=== PATIENT | female | born 1980 | race Two or more races ===

== ENCOUNTER → 2020-01-09 15:05 | Outpatient (CLI) | payer BC, SELFPAY ==
--- NOTE | ~2020-01-09 | XR_ITS ---
XR lumbar spine 2-3V DATE: 01/09/2020 15:25 INDICATION: Left low back pain radiating down posterior left leg to knee. No injury. TECHNIQUE: AP, lateral, coned lateral lumbosacral views COMPARISON: None FINDINGS: No fracture or dislocation or bone destruction. Lumbar and included lower thoracic pedicles are intact. Lumbar and lower sacral interspaces are well preserved. The sacral iliac joints appear n ormal. IMPRESSION: No significant abnormality Reviewed, dictated and finalized at location A. IMPRESSION: No significant abnormality
== END ==
PROVIDERS: PCP Nurse Practitioner; Visit Provider Nurse Practitioner
DX: M54.9 Dorsalgia, unspecified (principal)
CPT/HCPCS: 72100

== ENCOUNTER 2020-01-10 11:31 | Emergency (ER) | payer BC, SELFPAY ==
--- NOTE | 2020-01-10 11:49 | ED.BACK ---
HPI - Back Pain/Injury General Chief Complaint: Extremity Problem,Nontraumatic Stated Complaint: nerve pain L leg and numbness Time Seen by Provider: 01/10/20 11:50 Source: patient Mode of arrival: ambulatory Limitations: no limitations History of Present Illness HPI Narrative: Previously well 39-year-old woman comes in today complaining of 3 days of progressive numbness in her left buttock and leg. She states that she had sudden onset of pain while driving 3 days ago. Since then the pain has improved but she is having progression of the numbness. She complains of weakness in her left leg. She now states that her buttock is numb, the medial aspect of her groin, leg and lower abdomen are now numb. She denies prior similar symptoms and has had no fever, night sweats, dysuria, recent cough or cold symptoms, abdominal pain or trauma. The day of onset she was prescribed a Medrol Dosepak and yesterday she was given a shot of triamcinolone for her symptoms. She has been taking NSAIDs as well. MD elicited complaint: back pain Onset (ago): day(s) (3) Timing: constant Severity: moderate Quality: sharp and aching Location: lumbar spine Radiation: buttocks and left upper leg Exacerbating factors: movement Relieving factors: none Associated symptoms: weakness, numbness and loss of sensation in lower extremities Treatments prior to arrival: NSAIDS Related Data Home Medications Medication Instructions Recorded Confirmed desvenlafaxine succinate 25 mg 25 mg PO DAILY 01/09/20 01/10/20 tablet,extended release 24 hr dextroamphetamine-amphetamine ER 15 mg PO DAILY 01/09/20 01/10/20 15 mg 24hr capsule,extend release doxylamine succinate 25 mg tablet 25 mg PO ONCE 01/09/20 01/10/20 methylprednisolone 4 mg tablet 4 mg PO DAILY 01/09/20 01/10/20 Allergies Allergy/AdvReac Type Severity Reaction Status Date / Time iodine Allergy Unknown Unknown Verified 01/09/20 14:25 Sulfa (Sulfonamide Allergy Unknown Rash Verified 01/09/20 14:25 Antibiotics) Review of Systems Constitutional: Constitutional: Denies chills and Denies fever(s) Eyes: Eyes: Denies change in vision and Denies photophobia ENT: Denies dysphagia, Denies nasal congestion and Denies sore throat Cardiovascular: Cardiovascular: Denies chest pain and Denies radiating jaw, neck or arm pain Respiratory: Respiratory: Denies chest congestion, Denies cough and Denies dyspnea Gastrointestinal: Gastrointestinal: Denies abdominal pain, Denies nausea and Denies vomiting Genitourinary: Genitourinary: Denies hematuria, Denies nocturia, Denies dysuria and Denies urinary incontinence Musculoskeletal: Musculoskeletal: Reports back pain, Denies arthralgias and Denies joint swelling Integumentary/Breasts: Skin/Breast: Denies pruritus, Denies erythema and Denies rash Neurologic: Denies vertigo, Denies dizziness and Denies syncope Endocrine: Endocrine: Denies polydipsia and Denies polyuria Hematologic/Lymphatic: Hematologic/Lymphatic: Denies easy bleeding and Denies easy bruising Allergic/Immunologic: Allergic/Immunologic: Denies lip swelling and Denies tongue swelling PMFSH Past Medical History Medical History ADHD Anxiety Migraines Surgical History Surgical History History of appendectomy History of partial hysterectomy Hx of tonsillectomy Family History Family History Mother Bipolar affect, depressed Father COPD (chronic obstructive pulmonary disease) Diabetes mellitus CHF (congestive heart failure) Liver disease Depression Grandparent Diabetes mellitus COPD (chronic obstructive pulmonary disease) Malignant neoplasm of prostate Sibling Hypertension High cholesterol Social History Social History Smoking status: Never smoker [place]
[2020-01-10 11:50] VITALS: BP 145/93; PULSE 96; RESP 16; TEMP 36.8; O2SAT 99
--- NOTE | 2020-01-10 12:49 | PC.NURSE ---
CALLS PLACED TO [facility] FOR OUTPATIENT MRI TODAY
--- NOTE | 2020-01-10 13:39 | PC.NURSE ---
CONTINUE TO AWAIT [facility] FOR MRI INSURANCE APPROVAL
[2020-01-10 14:22] VITALS: RESP 16
== END 2020-01-10 14:25 | disposition home or self-care (01) ==
PROVIDERS: Emergency Provider Emergency Medicine; PCP Nurse Practitioner
DX: M54.17 Radiculopathy, lumbosacral region (principal)
CPT/HCPCS: 99283

== ENCOUNTER 2020-01-10 15:07 | Outpatient (CLI) | payer BC, SELFPAY ==
--- NOTE | ~2020-01-10 | MR_ITS ---
EXAMINATION: MR lumbar spine wo/w con EXAM DATE: 01/10/2020 17:44 INDICATION: Anesthesia of skin. Dorsalgia. Numbness. Cramping and pain down left leg. Numbness beginn ing and pelvis. Started on Thursday, progressively worsening. TECHNIQUE: Multi-sequential, multiplanar MR images of the lumbar spine were obtained without contrast . Sagittal T1, T2, T2 fat saturation images. Axial T2 weighted images. Axial T1 weighted sequence. Patient was then injected with 15 mL Multihance intravenous contrast and reimaged. Postcontrast axi al and sagittal T1-weighted fat saturation sequences were obtained. There are no prior studies for co mparison. FINDINGS: There is 3 mm retrolisthesis L5 on S1 with mild loss of disc height, disc desiccation, karel lar fissure and extrusion. The vertebral body and disc heights are otherwise well maintained. The dayanara tebral bodies are otherwise aligned. The conus medullaris terminates at the L1/2 level and has normal signal intensity and morphology. The cauda equina are normal, no evidence of arachnoiditis. There a re no suspicious marrow signal abnormalities. Paraspinal soft tissue is unremarkable. Level by level evaluation: T12-L1: Disc does not extend beyond the endplate margin. Facet arthropathy: None. Neural foraminal stenosis: No stenosis. Central canal stenosis: No stenosis. L1-L2: Disc does not extend beyond the endplate margin. Facet arthropathy: None. Neural foraminal stenosis: No stenosis. Central canal stenosis: No stenosis. L2-L3: Disc does not extend beyond the endplate margin. Facet arthropathy: Mild. Neural foraminal stenosis: No stenosis. Central canal stenosis: No stenosis. L3-L4: Disc does not extend beyond the endplate margin. Facet arthropathy: Mild. Neural foraminal stenosis: No stenosis. Central canal stenosis: No stenosis. L4-L5: There is a minimal diffuse disc bulge. Facet arthropathy: Mild. Neural foraminal stenosis: No stenosis. Central canal stenosis: No stenosis. L5-S1: There is a mild diffuse disc bulge, central annular fissure with small to moderate-sized centr al protrusion, and also an inferiorly migrated extruded fragment measuring about 4 x 12 mm in greates t axial dimensions, in left central position posterior to S1. This is likely compressing the left S1 and possibly S2 nerve root(s) in the lateral recess. Mild enhancement in the region, probably mild e casandra. Facet arthropathy: Mild to moderate. Neural foraminal stenosis: Mild to moderate left, mild right. Central canal stenosis: Mild to moderate. IMPRESSION: L5-S1 disc protrusion, and left central extrusion causing significant mass effect on randal ersing left S1, possibly S2 nerve roots in the lateral. Most likely causing patient's symptoms. Reviewed, dictated and finalized at location G. IMPRESSION: L5-S1 disc protrusion, and left central extrusion causing significa nt mass effect on traversing left S1, possibly S2 nerve roots in the lateral. M ost likely causing patient's symptoms.
[2020-01-10 16:56] LABS: Estimated Glomerular Filt Rate > 60
== END 2020-01-10 15:08 | disposition home or self-care (01) ==
PROVIDERS: PCP Nurse Practitioner; Visit Provider Family Medicine
DX: R20.0 Anesthesia of skin (principal); R53.1 Weakness; M51.27 Other intervertebral disc displacement, lumbosacral region
CPT/HCPCS: 36415; 72158; A9577

== ENCOUNTER 2021-02-13 11:56 | Outpatient (CLI) | payer BC, SELFPAY ==
[2021-02-13 19:00] LABS: Add Urine Microscopic? NO; Appearance Urine Clear (Clear); Bilirubin Urine Negative (Negative); Blood Urine Negative (Negative); Color Urine Straw (Yellow); Glucose Urine UA Negative (Negative); Ketones Urine Negative (Negative); Leukocyte Esterase Ur Negative LEU/UL (NEGATIVE); Nitrate Urine Negative (Negative); Protein Urine Negative (Negative); Urobilinogen Urine Negative mg/dL (<2.0)
[2021-02-13 19:04] LABS: Basophils Absolute Auto 0.1 K/mm3 (0.0-0.1); Basophils Percent Auto 0.7 % (0.2-1.2); Eosinophils Absolute Auto 0.2 K/mm3 (0-0.3); Eosinophils Percent Auto 2.4 % (0-4.4); Hemoglobin 13.6 g/dL (12.0-15.0); Immature Granulocyte Absolute 0.03 K/mm3 (0.00-0.031); Immature Granulocyte Percent A 0.4 % (0-0.5); Lymphocytes Absolute Auto 2.22 K/mm3 (0.9-3.2); Lymphocytes Percent Auto 33.2 % (18.3-44.2); Mean Corpuscular HGB Conc 31.6 g/dl (32-36); Mean Corpuscular Hemoglobin 29.4 pg (26-34); Mean Corpuscular Volume 92.9 fl (80-100); Mean Platelet Volume 10.3 fl (7.4-10.4); Monocytes Absolute Auto 0.5 K/mm3 (0.1-0.6); Monocytes Percent Auto 7.6 % (2.6-8.5); Neutrophils Absolute Auto 3.7 K/mm3 (1.3-6.7); Neutrophils Percent Auto 55.7 % (45.5-73.1); Platelet Count Result 321 k/mm3 (150-375); Red Blood Count 4.63 M/mm3 (4.2-5.4); Red Cell Distribution Width 13.4 % (11.5-14.5); White Blood Count 6.7 K/mm3 (4.5-10.0)
[2021-02-13 19:05] LABS: Alanine Aminotransferase 28 U/L (4-35); Albumin Level 4.5 g/dL (3.5-5.1); Alkaline Phosphatase 97 U/L (38-126); Anion Gap 10 mmol/L (8-16); Aspartate Amino Transferase 36 U/L (14-36); Bilirubin,Total 0.6 mg/dL (0.2-1.3); Blood Urea Nitrogen 12 mg/dL (7-17); Calcium 9.5 mg/dL (8.4-10.2); Carbon Dioxide 26 mmol/L (22-30); Chloride 101 mmol/L (98-107); Cholesterol 215 mg/dL (0-200); Estimated Glomerular Filt Rate > 60; Glucose 87 mg/dL (65-110); HDL Direct 75 mg/dL; Potassium 4.2 mmol/L (3.4-5.0); Sodium 137 mmol/L (137-145); Triglycerides 101 mg/dL (<150)
[2021-02-13 19:16] LABS: LDL Cholesterol Direct 109 mg/dL
[2021-02-13 19:36] LABS: Vitamin D 25 Hydroxy 34.6 ng/mL
[2021-02-13 19:49] LABS: Thyroid Stimulating Hormone Reflex 0.656 uIU/mL (0.465-4.68)
[2021-02-13 20:07] LABS: Hemoglobin A1C 5.3 % (<5.7)
[2021-02-16 05:37] LABS: FSH 3.6 mIU/mL (***); LH 2.3 mIU/mL (***)
[2021-02-19 16:52] LABS: Estrogen 256.9 pg/mL
== END 2021-02-13 11:57 | disposition home or self-care (01) ==
LOC: ANHBWCLAB 11:56
PROVIDERS: PCP Family Medicine; Visit Provider Family Medicine
DX: E11.9 Type 2 diabetes mellitus without complications (principal); N39.0 Urinary tract infection, site not specified; E65 Localized adiposity; R63.5 Abnormal weight gain; M51.17 Intervertebral disc disorders with radiculopathy, lumbosacral region; R21 Rash and other nonspecific skin eruption; F41.9 Anxiety disorder, unspecified; F90.9 Attention-deficit hyperactivity disorder, unspecified type; R53.83 Other fatigue; E55.9 Vitamin D deficiency, unspecified
CPT/HCPCS: 36415; 80053; 80061; 81003; 82306; 82672; 83001; 83002; 83036; 84443; 85025; 86038

== ENCOUNTER 2021-03-20 16:12 | Outpatient (CLI) | payer BC, SELFPAY ==
[2021-03-20 19:11] LABS: Add Urine Microscopic? YES; Appearance Urine Clear (Clear); Bacteria Urine Trace /hpf; Bilirubin Urine Negative (Negative); Blood Urine 1+ (Negative); Calcium Oxalate Crystals Urine Present /hpf; Color Urine Yellow (Yellow); Glucose Urine UA Negative (Negative); Ketones Urine Negative (Negative); Leukocyte Esterase Ur 1+ LEU/UL (NEGATIVE); Mucus Urine Heavy /lpf; Nitrate Urine Negative (Negative); Protein Urine 1+ mg/dL (Negative); Specific Grav Ur 1.032 (1.001-1.035); Squamous Epithelial Cell Urine Many /hpf (Few); Urobilinogen Urine Negative mg/dL (<2.0)
== END 2021-03-20 16:13 | disposition home or self-care (01) ==
PROVIDERS: PCP Family Medicine; Visit Provider Family Medicine
DX: N39.0 Urinary tract infection, site not specified (principal)
CPT/HCPCS: 81001; 87077; 87086; 87088; 87186

== ENCOUNTER 2021-06-26 07:35 | Emergency (ER) | payer BC, OTHER, SELFPAY ==
--- NOTE | ~2021-06-26 | XR_ITS ---
EXAMINATION: XR chest 1V portable INDICATION: Cough and shortness of breath TECHNIQUE: Portable AP chest at 0851 hours COMPARISON: None available FINDINGS: There are minimal airspace opacities of the lung bases. No pleural effusion or pneumothorax is identified. The cardiomediastinal silhouette is normal. IMPRESSION: 1. Minimal bibasilar airspace opacity, consistent with atelectasis versus pneumonia. Reviewed, dictated and finalized at location A. ETICS DEMONSTRATOR IMPRESSION: 1. Minimal bibasilar airspace opacity, consistent with atelectasis versus pneum onia.
[2021-06-26 08:17] VITALS: BP 178/92; PULSE 100; RESP 20; TEMP 37; O2SAT 100
--- NOTE | 2021-06-26 09:12 | ED.URI ---
HPI - URI/Sore Throat General Chief Complaint: Upper Respiratory Infection <Ana Watts PA-C - Last Filed: 06/26/21 10:46> Stated Complaint: not feeling good <APRYL Davis Last Filed: 06/26/21 10:46> Time Seen by Provider: 06/26/21 08:59 <APRYL Davis Last Filed: 06/26/21 10:46> Source: patient <APRYL Davis Last Filed: 06/26/21 10:46> Mode of arrival: ambulatory <APRYL Davis Last Filed: 06/26/21 10:46> Limitations: no limitations <APRYL Davis Last Filed: 06/26/21 10:46> History of Present Illness HPI Narrative: This is a 40-year-old female that presents to the emergency department for cold symptoms x4 days. Reports cough, congestion, and headache. Reports she has a hard time catching her breath when she coughs. Denies fever or chest pain. <APRYL Davis Last Filed: 06/26/21 10:46> Related Data Home Medications: Home Medications Medication Instructions Recorded Confirmed dextroamphetamine-amphetamine ER 15 mg PO DAILY 01/09/20 06/25/21 15 mg 24hr capsule,extend release doxylamine succinate 25 mg tablet 25 mg PO ONCE 01/09/20 06/25/21 desvenlafaxine succinate 25 mg 75 mg PO DAILY tablet 02/13/21 06/25/21 tablet,extended release 24 hr gabapentin 300 mg capsule 300 mg PO TID 02/13/21 06/25/21 cyclobenzaprine 5 mg tablet 5 mg PO TID PRN 03/27/21 06/25/21 <APRYL Davis Last Filed: 06/26/21 10:46> Allergies/Adverse Reactions: Allergies Allergy/AdvReac Type Severity Reaction Status Date / Time iodine Allergy Unknown Unknown Verified 06/26/21 08:21 shellfish derived Allergy Unknown unknown Verified 06/26/21 08:21 Sulfa (Sulfonamide Allergy Unknown Rash Verified 06/26/21 08:21 Antibiotics) <Ana Watts PA-C - Last Filed: 06/26/21 10:46> Review of Systems Review of Systems: CONSTITUTIONAL: Denies fever ENT: Reports congestion. Denies sore throat CARDIOVASCULAR: Denies chest pain, or edema. RESPIRATORY: Reports cough <APRYL Davis Last Filed: 06/26/21 10:46> All systems reviewed & are unremarkable except as noted in HPI and below <Ana Watts PA-C - Last Filed: 06/26/21 10:46> PMFSH Past Medical History Medical History: Medical History ADHD Anxiety Migraines <APRYL Davis Last Filed: 06/26/21 10:46> Surgical History Surgical History: Surgical History History of appendectomy History of back surgery History of partial hysterectomy Hx of tonsillectomy <Ana Watts PA-C - Last Filed: 06/26/21 10:46> Family History Family History: Family History Mother Bipolar affect, depressed Father COPD (chronic obstructive pulmonary disease) Diabetes mellitus CHF (congestive heart failure) Liver disease Depression Grandparent Diabetes mellitus COPD (chronic obstructive pulmonary disease) Malignant neoplasm of prostate Sibling Hypertension High cholesterol Other Breast cancer Other Lymphoma <APRYL Davis Last Filed: 06/26/21 10:46> Social History Social History: Social History Smoking status: Never smoker Alcohol intake: current Drinks per week: 3 Alcohol use details: wine <APRYL Davis Last Filed: 06/26/21 10:46> Exam Narrative: GENERAL: Well-appearing, well-nourished, and in no acute distress. HEAD: Normocephalic, atraumatic. EYES: EOMI. ENT: Nares clear, no rhinorrhea or epistaxis. Mucous membranes moist. Oropharynx without tonsillar hypertrophy exudate or other lesions. Bilateral TMs pearly hawkins non-bulging NECK: Supple. No adenopathy or masses. CHEST: Rales in the lung bases. No respiratory distress. No wheezes or rhonchi HEART: Re
[2021-06-26] MEDS: ALBUTEROL SULFATE (*SP) AEROSOL 1 PUFF 2 PUFF INHALATION (09:31)
[2021-06-26] MEDS: ONDANSETRON HCL ODT 4 MG TABLET PO (09:47)
[2021-06-26] MEDS: KETOROLAC (*BKC) 60 MG/2 ML VIAL IM (09:47)
[2021-06-26] MEDS: ALBUTEROL SULFATE (*SP) INHALER 1 PUFF (11:31)
[2021-06-26 12:30] VITALS: BP 106/74; PULSE 90; RESP 18; O2SAT 99
[2021-06-26 20:26] LABS: SARS-CoV-2 RNA PCR Negative
== END 2021-06-26 12:26 | disposition home or self-care (01) ==
PROVIDERS: Physician Assistant; Emergency Provider Emergency Medicine; PCP Family Medicine
DX: J18.9 Pneumonia, unspecified organism (principal); Z20.822 Contact with and (suspected) exposure to COVID-19
CPT/HCPCS: 71045; 87804; 96372; 99283; A9270; C9803; J1885; U0003; U0005

== ENCOUNTER 2021-07-11 11:18 | Outpatient (CLI) | payer BC, OTHER, SELFPAY ==
--- NOTE | ~2021-07-11 | XR_ITS ---
XR hip LT min 3V w AP pelvis 07/11/2021 11:33 INDICATION: Left hip pain PROCEDURE: 3 views of the left hip including AP pelvis COMPARISON: No prior studies for comparison. FINDINGS: Fracture, dislocation or subluxation is not identified. The soft tissues appear within norm al limits. No foreign bodies are identified. IMPRESSION: 1: NO ACUTE BONE OR JOINT ABNORMALITY IDENTIFIED. Reviewed, dictated and finalized at location A. HER TENDER
== END 2021-07-11 11:19 | disposition home or self-care (01) ==
LOC: ANHBWCIMG 11:20
PROVIDERS: PCP Family Medicine; Visit Provider Family Medicine
DX: M25.552 Pain in left hip (principal)
CPT/HCPCS: 73502

== ENCOUNTER 2021-07-21 12:56 | Outpatient (CLI) | payer BC, OTHER, SELFPAY ==
--- NOTE | ~2021-07-21 | MR_ITS ---
EXAMINATION: MR hip LT wo con DATE: 07/21/2021 14:37 INDICATION: Left hip pain. TECHNIQUE: Magnetic resonance imaging (MRI) of the left hip was performed without intravenous contras t. Sequences included axial and coronal PD-weighted FS FSE and axial T1-weighted FSE of the pelvis. S equences of the hip included 2D FIESTA, T1-weighted fast GRE, and axial, coronal, and sagittal PD-andrea ghted FS FSE. COMPARISON: Pelvis and left hip radiographs 07/11/2021 FINDINGS: Bones/cartilage: Bone alignment is normal. No fracture. The femoral head/neck junctions are normal in morphology. Ther e are tiny osteophytes of the hip joints. Left hip joint demonstrates partial thickness cartilage los s posteriorly. Labrum: There is a tear of the left acetabular labrum. Fluid: There is no hip joint effusion. There is mild bilateral trochanteric bursitis. Soft tissues: The gluteus minimus and gluteus medius tendons are normal. The hamstring origins are normal. The ilio psoas tendons are normal. IMPRESSION: 1. Mild osteoarthritis of the hips. 2. Tear of left acetabular labrum. 3. Mild bilateral trochanteric bursitis. Reviewed, dictated and finalized at location A. ORATE HUMAN RESOURCES MANAGER
== END 2021-07-21 12:57 | disposition home or self-care (01) ==
PROVIDERS: PCP Family Medicine; Visit Provider Nurse Practitioner Family
DX: M16.12 Unilateral primary osteoarthritis, left hip (principal); S73.192A Other sprain of left hip, initial encounter; M70.62 Trochanteric bursitis, left hip
CPT/HCPCS: 73721

== ENCOUNTER 2021-07-21 13:05 | Outpatient (CLI) | payer BC, OTHER, SELFPAY ==
--- NOTE | ~2021-07-21 | MR_ITS ---
EXAMINATION: MR lumbar spine wo con DATE: 07/21/2021 14:37 INDICATION: Low back pain, unspecified. TECHNIQUE: Magnetic resonance imaging (MRI) of the lumbar spine was performed without intravenous con trast. Sequences included sagittal T2-weighted FSE, sagittal T2-weighted FS FSE, sagittal T1-weighted FSE, and axial T2-weighted FSE. COMPARISON: Lumbar spine MRI 01/10/2020 FINDINGS: There is 3 mm retrolisthesis of L5 on S1. Vertebral body heights are normal. There is moder ately decreased disc height at L5-S1. The distal spinal cord signal intensity is normal. The conus me dullaris is at L1. The following disc levels are specifically discussed: L1-L2: The disc does not extend beyond the endplate margin. There is mild bilateral facet joint osteo arthritis. There is no neural foraminal stenosis. There is no central canal stenosis. L2-L3: The disc does not extend beyond the endplate margin. There is mild bilateral facet joint osteo arthritis. There is no neural foraminal stenosis. There is no central canal stenosis. L3-L4: The disc does not extend beyond the endplate margin. There is mild bilateral facet joint osteo arthritis. There is no neural foraminal stenosis. There is no central canal stenosis. L4-L5: The disc does not extend beyond the endplate margin. There is no facet joint osteoarthritis. T here is no neural foraminal stenosis. There is no central canal stenosis. L5-S1: The disc is bulging and has an annular fissure. There are changes of microdiscectomy. There is mild right and severe left facet joint osteoarthritis. There is mild right and moderate left neural foraminal stenosis. There is mild central canal stenosis. IMPRESSION: 1. Moderate spondylosis at L5-S1 with interval surgical change. Reviewed, dictated and finalized at location A. L CASTER
== END 2021-07-21 13:06 | disposition home or self-care (01) ==
PROVIDERS: PCP Family Medicine; Visit Provider Family Medicine
DX: M47.27 Other spondylosis with radiculopathy, lumbosacral region (principal); M48.07 Spinal stenosis, lumbosacral region
CPT/HCPCS: 72148

== ENCOUNTER 2021-10-29 08:26 | Emergency (ER) | payer BC, OTHER, SELFPAY ==
[2021-10-29 08:33] VITALS: BP 118/70; PULSE 84; RESP 16; TEMP 36.8; O2SAT 100
--- NOTE | 2021-10-29 08:35 | ED.EAR ---
HPI - Ear Problem General Chief complaint: Ear Stated complaint: ear pain Time Seen by Provider: 10/29/21 08:35 Source: patient and RN notes reviewed History of Present Illness HPI Narrative: Patient is a 40-year-old female who presents the urgent care with complaints of bilateral ear pressure/pain. Patient states that she does have chronic allergies and assumed it was just a flare . Patient states that the pressure was worse yesterday and she did take a 24-hour Claritin. Denies of any fevers or other upper respiratory complaints. No acute distress noted. Patient aware of the plan of care. Some parts of this dictation were generated by voice recognition software and may contain typographical and/or grammatical inaccuracies. Related Data Home Medications Medication Instructions Recorded Confirmed dextroamphetamine-amphetamine ER 15 mg PO DAILY 01/09/20 07/25/21 15 mg 24hr capsule,extend release doxylamine succinate 25 mg tablet 25 mg PO ONCE 01/09/20 07/25/21 desvenlafaxine succinate 25 mg 75 mg PO DAILY tablet 02/13/21 07/25/21 tablet,extended release 24 hr Allergies Allergy/AdvReac Type Severity Reaction Status Date / Time iodine Allergy Unknown Rash Verified 10/29/21 08:44 shellfish derived Allergy Unknown Rash Verified 10/29/21 08:44 Sulfa (Sulfonamide Allergy Unknown Rash Verified 07/11/21 10:56 Antibiotics) Review of Systems Review of Systems: CONSTITUTIONAL: Denies fever, chills, or sweats. EYES: Denies visual changes, redness, or discharge. ENT: Reports of bilateral otalgia and mild intermittent sore throat CARDIOVASCULAR: Denies chest pain, palpitations, or edema. RESPIRATORY: Denies cough or dyspnea. GASTROINTESTINAL: Denies abdominal pain, nausea, vomiting, or diarrhea. GENITOURINARY: Denies dysuria or hematuria. SKIN: Denies rash or itching. MUSCULOSKELETAL: Denies back pain, joint pain, or myalgia. NEUROLOGIC: Denies headache, numbness, or weakness. All other systems reviewed are negative, except as documented in HPI. [facility] Past Medical History Medical History ADHD Anxiety Migraines Surgical History Surgical History History of appendectomy History of back surgery History of partial hysterectomy Hx of tonsillectomy Family History Family History Mother Bipolar affect, depressed Father COPD (chronic obstructive pulmonary disease) Diabetes mellitus CHF (congestive heart failure) Liver disease Depression Grandparent Diabetes mellitus COPD (chronic obstructive pulmonary disease) Malignant neoplasm of prostate Sibling Hypertension High cholesterol Other Breast cancer Other Lymphoma Social History Social History Smoking status: Never smoker Alcohol intake: current Drinks per week: 3 Alcohol use details: wine Comments At the time of my signature, I reviewed and agree with the nursing past medical, surgical, social, and family history. There is no relevant family history pertinent to the patient complaint. Exam Narrative: GENERAL: This is a well-nourished, well-developed patient, in no apparent distress. HEAD: normocephalic, atraumatic. EYES: PERRL. Sclera clear/white. Vision is grossly intact. EARS: External ears normal, auditory canals clear and without drainage, TMs normal without perforation. Hearing grossly intact. NOSE: External nose normal with no obvious nasal discharge, nares without redness, no rhinorrhea. THROAT: Mucous membranes moist, posterior pharynx clear. Mild postnasal drainage NECK: Neck supple CARDIOVASCULAR: Regular rate and rhythm without murmurs, gallops, or rubs. RESPIRATORY: Clear to auscultation. Breath sounds equal bilaterally. No wheezes, rales, or rhonchi. SKIN: warm, intact with no suspicious lesions or ra
== END 2021-10-29 08:46 | disposition home or self-care (01) ==
PROVIDERS: Emergency Provider Nurse Practitioner Family; PCP Family Medicine
DX: H92.03 Otalgia, bilateral (principal); F90.9 Attention-deficit hyperactivity disorder, unspecified type; Z90.711 Acquired absence of uterus with remaining cervical stump
CPT/HCPCS: 99211; G0463

== ENCOUNTER 2021-12-04 09:14 | Outpatient (CLI) | payer BC, OTHER, SELFPAY ==
[2021-12-04 19:24] LABS: Appearance Urine Clear (Clear); Bilirubin Urine Negative (Negative); Blood Urine Trace-lysed (Negative); Color Urine Yellow (Yellow); Glucose Urine UA Negative (Negative); Ketones Urine Negative (Negative); Leukocyte Esterase Ur 1+ LEU/UL (NEGATIVE); Nitrate Urine Negative (Negative); Protein Urine Negative (Negative); Urobilinogen Urine 0.2 mg/dL (<2.0); pH Urine 6.5 (5.0-9.0)
[2021-12-04 19:50] LABS: Squamous Epithelial Cell Urine Occasional /hpf (Few); WBC Urine 21-30 /hpf (0-3)
[2021-12-04 19:56] LABS: Add Urine Microscopic? YES
== END 2021-12-04 09:15 | disposition home or self-care (01) ==
PROVIDERS: PCP Family Medicine; Visit Provider Family Medicine
DX: N30.90 Cystitis, unspecified without hematuria (principal)
CPT/HCPCS: 81001; 87077; 87086; 87186

== ENCOUNTER 2022-02-11 09:22 | Outpatient (CLI) | payer BC, OTHER, SELFPAY ==
[2022-02-11 18:41] LABS: Appearance Urine Cloudy (Clear); Bilirubin Urine Negative (Negative); Blood Urine 1+ (Negative); Glucose Urine UA Negative (Negative); Ketones Urine Negative (Negative); Leukocyte Esterase Ur 2+ LEU/UL (NEGATIVE); Nitrate Urine Negative (Negative); Protein Urine Negative (Negative); Specific Grav Ur 1.015 (1.001-1.035); Urobilinogen Urine 0.2 mg/dL (<2.0)
[2022-02-11 18:43] LABS: Add Urine Microscopic? YES; Color Urine Light Yellow (Yellow)
[2022-02-11 18:52] LABS: Bacteria Urine Trace /hpf; Squamous Epithelial Cell Urine Few /hpf (Few); WBC Urine 51-75 /hpf (0-3)
== END 2022-02-11 09:23 | disposition home or self-care (01) ==
LOC: ANHBWCLAB 09:24
PROVIDERS: PCP Family Medicine; Visit Provider Family Medicine
DX: N30.90 Cystitis, unspecified without hematuria (principal)
CPT/HCPCS: 81001; 87077; 87086; 87186

== ENCOUNTER 2022-04-21 08:30 | Emergency (ER) | payer BC, OTHER, SELFPAY ==
--- NOTE | ~2022-04-21 | XR_ITS ---
EXAMINATION: XR foot RT min 3V DATE: 04/21/2022 08:55 INDICATION: Swelling at the anterior right foot following low impact exercising TECHNIQUE: Dorsoplantar, two oblique and lateral views of the right foot were obtained. COMPARISON: None. FINDINGS: Mild widening of the fourth distal interphalangeal joint space with abnormal contour to the head of t he fourth middle phalanx with smooth corticated margins. Which suggests either sequela of old fractur e, osteotomy or chronic osteomyelitis. Alignment is otherwise normal. No acute fracture. Mild polyart icular osteoarthritis at the first and fifth metatarsophalangeal and a few of the tarsal metatarsal a nd interphalangeal joints. Soft tissues are unremarkable. IMPRESSION: 1. Joint space widening at the fourth distal interphalangeal joint with abnormal contour to the head of the middle phalanx with chronic appearance suggesting either sequela of old fracture, osteotomy or prior septic arthritis/osteomyelitis. No acute osseous abnormality. Reviewed, dictated and finalized at location A. IMPRESSION: 1. Joint space widening at the fourth distal interphalangeal joint with abnorma l contour to the head of the middle phalanx with chronic appearance suggesting either sequela of old fracture, osteotomy or prior septic arthritis/osteomyelit is. No acute osseous abnormality.
[2022-04-21 08:36] VITALS: BP 122/74; PULSE 81; RESP 16; TEMP 37.1; O2SAT 100
--- NOTE | 2022-04-21 08:40 | ED.LOWEXIN ---
HPI - Extremity Injury (Lower) General Chief Complaint: Extremity Injury, Lower Stated Complaint: Right Foot Pain Source: patient Mode of arrival: ambulatory Limitations: no limitations History of Present Illness HPI Narrative: 41 y/o female presented for c/o right foot pain for 4 days. Pain is dull at the base of 2nd-4th toes, sharp with walking. Denies injury. States it started hurting when she stepped out of bed in the morning. Endorses swelling. Denies bruising, numbness, tingling or weakness. Not taking anything for pain. Rates 3/10, worse with walking. Able to bear weight, states she helped someone move for the last 2 days. History of bilateral foot surgery in the 2008 for hammer toe, says the 4th toes were shortened and the bones in 5th toes were shaved. Related Data Allergies Allergy/AdvReac Type Severity Reaction Status Date / Time iodine Allergy Unknown Rash Verified 04/21/22 08:43 shellfish derived Allergy Unknown Rash Verified 04/21/22 08:43 Sulfa (Sulfonamide Allergy Unknown Rash Verified 04/21/22 08:43 Antibiotics) Review of Systems Review of Systems: CONSTITUTIONAL: Denies body aches, fever, chills EYES: Denies visual changes CARDIOVASCULAR: Denies chest pain, palpitations, or edema. RESPIRATORY: Denies cough or dyspnea. SKIN: Denies rash, itching, or wounds. MUSCULOSKELETAL: Reports right foot pain NEUROLOGIC: Denies headache, numbness, tingling, or weakness. All systems reviewed & are unremarkable except as noted in HPI and below PMFSH Past Medical History Medical History ADHD Anxiety Chronic headaches Migraines Surgical History Surgical History History of appendectomy History of back surgery History of partial hysterectomy Hx of tonsillectomy Family History Family History Mother Bipolar affect, depressed Father COPD (chronic obstructive pulmonary disease) Diabetes mellitus CHF (congestive heart failure) Liver disease Depression Grandparent Diabetes mellitus COPD (chronic obstructive pulmonary disease) Malignant neoplasm of prostate Sibling Hypertension High cholesterol Other Breast cancer Other Lymphoma Other Arthritis Heart disease Neuropathy Social History Social History (Reviewed 04/21/22 @ 09:01 by ASHOK Hickey Smoking status: Never smoker Alcohol intake: current Drinks per week: 3 Alcohol use details: wine Comments At time of signature, I have reviewed and agree with nursing past medical, surgical, social and family history unless otherwise noted. Please see nursing chart for further information. There is no relevant family history pertinent to the presenting complaint Exam Narrative: GENERAL: Well-appearing CHEST: Speaks in full sentences. No respiratory distress. HEART: Regular rate and rhythm. Normal and equal peripheral pulses. EXTREMITIES: Right foot dorsal surface with swelling and tenderness with palpation to base of 2nd-4th toes; foot has normal strength and sensation, normal range of motion. No ecchymosis. No open wounds or obvious deformity; pulse palpable and equal bilaterally, skin warm, dry, pink. Capillary refill less than 3 seconds. Ambulates with limp SKIN: Warm, dry, no rash. NEURO: Alert and oriented x3. Course Course Emergency Course: Patient is aware of diagnosis, understands and agrees to treatment plan. Anticipatory guidance given. Patient agrees to follow-up as directed and is aware of reasons to seek care at the emergency department. Portions of this record may have been created with voice recognition software Level of Care: Express Care Visit Vital Signs Vital signs: Vital Signs Temperature 98.7 F 04/21/22 08:36 Pulse Rate 81 04/21/22 08:36 Respiratory Rate 16 04/21/22 08:36 Blood Pressure 122/74
[2022-04-21 08:47] VITALS: BP 122/74; PULSE 81; RESP 16; TEMP 37.1; O2SAT 100
== END 2022-04-21 09:35 | disposition home or self-care (01) ==
PROVIDERS: Emergency Provider Nurse Practitioner Family; PCP Family Medicine
DX: M79.671 Pain in right foot (principal); F90.9 Attention-deficit hyperactivity disorder, unspecified type
CPT/HCPCS: 73630; 99213; G0463

== ENCOUNTER 2022-07-08 08:24 | Outpatient (CLI) | payer BC, OTHER, SELFPAY ==
[2022-07-08 19:59] LABS: Hematocrit 42.8 % (37.0-47.0); Hemoglobin 13.7 g/dL (12.0-15.0); Mean Corpuscular Hemoglobin 28.8 pg (26-34); Mean Corpuscular Volume 89.9 fl (80-100); Mean Platelet Volume 10.8 fl (7.4-10.4); Platelet Count Result 329 k/mm3 (150-375); Red Blood Count 4.76 M/mm3 (4.2-5.4); Red Cell Distribution Width 13.2 % (11.5-14.5); White Blood Count 9.5 K/mm3 (4.5-10.0)
[2022-07-08 20:00] LABS: Add Urine Microscopic? YES; Appearance Urine Clear (Clear); Bilirubin Urine Negative (Negative); Blood Urine 3+ (Negative); Color Urine Light Yellow (Yellow); Glucose Urine UA Negative (Negative); Ketones Urine Negative (Negative); Leukocyte Esterase Ur 1+ LEU/UL (NEGATIVE); Nitrate Urine Positive (Negative); Protein Urine 1+ mg/dL (Negative); Urobilinogen Urine 0.2 mg/dL (<2.0); pH Urine 6.5 (5.0-9.0)
[2022-07-08 20:11] LABS: Alanine Aminotransferase 40 U/L (6-35); Albumin Level 4.7 g/dL (3.5-5.1); Alkaline Phosphatase 91 U/L (38-126); Anion Gap 10 mmol/L (8-16); Aspartate Amino Transferase 41 U/L (14-36); Bilirubin,Total 0.5 mg/dL (0.2-1.3); Blood Urea Nitrogen 12 mg/dL (7-17); Calcium 9.1 mg/dL (8.4-10.2); Carbon Dioxide 26 mmol/L (22-30); Chloride 100 mmol/L (98-107); Cholesterol 211 mg/dL (0-200); Estimated Glomerular Filt Rate > 60; Glucose 96 mg/dL (65-110); HDL Direct 51 mg/dL; Potassium 3.8 mmol/L (3.4-5.0); Sodium 136 mmol/L (137-145); Triglycerides 171 mg/dL (<150)
[2022-07-08 20:14] LABS: Mucus Urine Few /lpf; RBC Urine >75 /hpf (0-2); Squamous Epithelial Cell Urine Many /hpf (Few); WBC Clumps Urine Present /HPF; WBC Urine >75 /hpf (0-3)
[2022-07-08 20:21] LABS: LDL Cholesterol Direct 110 mg/dL
== END 2022-07-08 08:25 | disposition home or self-care (01) ==
LOC: ANHBWCLAB 08:26
PROVIDERS: PCP Family Medicine; Visit Provider Family Medicine
DX: Z00.00 Encounter for general adult medical examination without abnormal findings (principal); N30.90 Cystitis, unspecified without hematuria
CPT/HCPCS: 36415; 80053; 80061; 81001; 85027; 87077; 87086; 87186

== ENCOUNTER 2022-08-21 08:06 | Outpatient (CLI) | payer OTHER, SELFPAY ==
[2022-08-21 20:24] LABS: Alanine Aminotransferase 30 U/L (6-35); Albumin Level 4.1 g/dL (3.5-5.1); Alkaline Phosphatase 88 U/L (38-126); Aspartate Amino Transferase 61 U/L (14-36); Bilirubin,Total 0.6 mg/dL (0.2-1.3)
[2022-08-21 21:20] LABS: Appearance Urine Cloudy (Clear); Bilirubin Urine Negative (Negative); Blood Urine Negative (Negative); Color Urine Yellow (Yellow); Glucose Urine UA Negative (Negative); Ketones Urine Negative (Negative); Leukocyte Esterase Ur Negative LEU/UL (NEGATIVE); Nitrate Urine Negative (Negative); Protein Urine Negative (Negative); Specific Grav Ur 1.025 (1.001-1.035); Urobilinogen Urine 0.2 mg/dL (<2.0)
[2022-08-21 22:14] LABS: Hepatitis B Surface Antigen Negative (Negative)
[2022-08-21 22:17] LABS: Add Urine Microscopic? YES
[2022-08-21 22:20] LABS: HAV RESULT Negative (Negative); Hepatitis B Core IgM Result Negative (Negative)
[2022-08-21 22:23] LABS: Bacteria Urine Trace /hpf; Mucus Urine Rare /lpf; Squamous Epithelial Cell Urine Many /hpf (Few); WBC Urine 0-3 /hpf (0-3)
[2022-08-21 22:32] LABS: Hepatitis C Virus Antibody Negative (Negative)
== END 2022-08-21 08:07 | disposition home or self-care (01) ==
LOC: ANHBWCLAB 08:09
PROVIDERS: PCP Family Medicine; Visit Provider Family Medicine
DX: N30.90 Cystitis, unspecified without hematuria (principal); R74.8 Abnormal levels of other serum enzymes
CPT/HCPCS: 36415; 80074; 80076; 81001; 87086

== ENCOUNTER 2022-09-16 14:31 | Emergency (ER) | payer OTHER, SELFPAY ==
--- NOTE | ~2022-09-16 | XR_ITS ---
EXAMINATION: XR ankle LT min 3V DATE: 09/16/2022 14:56 INDICATION: Left ankle pain. Fall. TECHNIQUE: 4 views of left ankle were obtained. COMPARISON: None. FINDINGS: Bone alignment is normal. No fracture. Joint spaces are normal. IMPRESSION: 1. No fracture. Reviewed, dictated and finalized at location A. 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 No fracture.
--- NOTE | ~2022-09-16 | XR_ITS ---
EXAMINATION: XR foot LT min 3V DATE: 09/16/2022 14:59 INDICATION: Left foot pain. Fall. TECHNIQUE: 4 views of left foot were obtained. COMPARISON: None. FINDINGS: Bone alignment is normal. There is a chip fracture of proximal lateral plantar aspect of ca lcaneus. There are likely changes of resection of head of fifth proximal phalanx. There is widening o f fourth distal interphalangeal joint, which may be from prior surgery. There is mild osteoarthritis of fifth metatarsophalangeal joint. IMPRESSION: 1. Chip fracture of proximal lateral plantar aspect of calcaneus. Reviewed, dictated and finalized at location A. ER DRIER TAILER
[2022-09-16 14:38] VITALS: BP 115/74; PULSE 74; RESP 16; TEMP 36.5; O2SAT 100
--- NOTE | 2022-09-16 14:45 | ED.LOWEXIN ---
HPI - Extremity Injury (Lower) General Chief Complaint: Extremity Injury, Lower Stated Complaint: Fall Injury/ Left Ankle Source: patient and RN notes reviewed History of Present Illness HPI Narrative: 41-year-old female presents to urgent care with sister at side. Patient presents with left foot pain and swelling. Patient states approximately 1 hour prior to arrival she missed a step turning her foot inward. Patient denies any head injury or LOC. Denies any chest pain, shortness of breath, or vomiting. Some parts of this dictation were generated by voice recognition software and may contain typographical and/or grammatical inaccuracies. Related Data Allergies Allergy/AdvReac Type Severity Reaction Status Date / Time iodine Allergy Unknown Rash Verified 08/21/22 07:38 shellfish derived Allergy Unknown Rash Verified 08/21/22 07:38 Sulfa (Sulfonamide Allergy Unknown Rash Verified 08/21/22 07:38 Antibiotics) Review of Systems Review of Systems: CONSTITUTIONAL: Denies fever, chills, or sweats. EYES: Denies visual changes, redness, or discharge. ENT: Denies otalgia and sore throat CARDIOVASCULAR: Denies chest pain, palpitations, or edema. RESPIRATORY: Denies cough or dyspnea. GASTROINTESTINAL: Denies abdominal pain, nausea, vomiting, or diarrhea. GENITOURINARY: Denies dysuria or hematuria. SKIN: Denies rash or itching. MUSCULOSKELETAL: Left foot pain NEUROLOGIC: Denies headache, numbness, or weakness. [facility] Past Medical History Medical History (Updated 09/16/22 @ 15:20 by Comfort Romero APRN) ADHD Anxiety Chronic headaches Migraines Surgical History Surgical History History of appendectomy History of back surgery History of partial hysterectomy Hx of tonsillectomy Family History Family History Mother Bipolar affect, depressed Father COPD (chronic obstructive pulmonary disease) Diabetes mellitus CHF (congestive heart failure) Liver disease Depression Grandparent Diabetes mellitus COPD (chronic obstructive pulmonary disease) Malignant neoplasm of prostate Sibling Hypertension High cholesterol Other Breast cancer Other Lymphoma Other Arthritis Heart disease Neuropathy Social History Social History (Updated 07/08/22 @ 07:47 by Daphne Gaines MA) Smoking status: Never smoker Alcohol intake: current Drinks per week: 3 Alcohol use details: wine Lack of Transportation: No Lack of Food: Never True Current Housing: I Have Housing Concerned About Future Housing: No Difficulty Paying Gas/Electric Bills: No Difficulty Paying for Meds: No Currently Unemployed: No Education: Associate Degree Difficulty w/ Childcare or Family Care: No Comments At the time of my signature, I reviewed and agree with the nursing past medical, surgical, social, and family history. There is no relevant family history pertinent to the patient complaint. Exam Narrative: GENERAL: This is a well-nourished, well-developed patient, in no apparent distress. HEAD: normocephalic, atraumatic. EYES: PERRL. Sclera clear/white. Vision is grossly intact. EARS: External ears normal, auditory canals clear and without drainage, TMs normal without perforation. Hearing grossly intact. NOSE: External nose normal with no obvious nasal discharge, nares without redness, no rhinorrhea. THROAT: Mucous membranes moist, posterior pharynx clear. NECK: Neck supple, non-tender without lymphadenopathy, masses or thyromegaly. CARDIOVASCULAR: Regular rate and rhythm without murmurs, gallops, or rubs. RESPIRATORY: Clear to auscultation. Breath sounds equal bilaterally. No wheezes, rales, or rhonchi. GASTROINTESTINAL: Abdomen soft, non-tender, nondistended. Bowel sounds are active. No hepato-splenomegaly, or palpable masses. No guarding. SKIN: warm, intact with no suspicious lesions or rash, good
== END 2022-09-16 15:31 | disposition home or self-care (01) ==
PROVIDERS: Emergency Provider Nurse Practitioner Family; PCP Family Medicine
DX: S92.002A Unspecified fracture of left calcaneus, initial encounter for closed fracture (principal); X50.0XXA Overexertion from strenuous movement or load, initial encounter
CPT/HCPCS: 73610; 73630; 99214; G0463

== ENCOUNTER 2022-11-01 18:46 | Emergency (ER) | payer SELFPAY ==
[2022-11-01] VITALS (12 sets, daily range): BP systolic 123–157; BP diastolic 76–137; PULSE 83–98; RESP 18–20; TEMP 36.8; O2SAT 96–100
--- NOTE | 2022-11-01 19:38 | ED.ALLEREA ---
HPI - Allergic Reaction General Chief complaint: Allergic Reaction Stated complaint: Rash Time Seen by Provider: 11/01/22 18:57 Source: patient Mode of arrival: ambulatory Limitations: no limitations History of Present Illness HPI narrative: Patient is a 41 y/o female who presents to the ED with c/o allergic reaction. Patient reports she was out to dinner with her friend around 5:30 PM tonight at a restaurant that she has eaten at previously. She had a calzone there. She states she began developing red itchy bumps on her arms and chest around 6 PM. She took an oral Benadryl 25 mg around 6:15 PM, but denied improvement. Bumps continued to spread. Patient denied any exposure to known allergens. She does have a shellfish allergy but called the restaurant and they do not have any shellfish there that could have caused cross-contamination. She had a similar episode of allergic reaction 2 months ago which was treated with steroids. Patient reported that her tongue felt somewhat itchy, but she denied lip or tongue swelling, feeling of throat closing, difficulty breathing or swallowing, nausea, vomiting. Denies any other known allergens, new lotions, detergents, medications. Related Data Allergies Allergy/AdvReac Type Severity Reaction Status Date / Time iodine Allergy Unknown Rash Verified 11/01/22 18:55 shellfish derived Allergy Unknown Rash Verified 11/01/22 18:55 Sulfa (Sulfonamide Allergy Unknown Rash Verified 11/01/22 18:55 Antibiotics) Review of Systems Review of Systems: CONSTITUTIONAL: Denies fever, chills, or sweats. EYES: Denies visual changes, redness, or discharge. ENT: See HPI. CARDIOVASCULAR: Denies chest pain. RESPIRATORY: Denies dyspnea. GASTROINTESTINAL: Denies abdominal pain, nausea, vomiting. GENITOURINARY: Denies dysuria or hematuria. SKIN: See HPI. MUSCULOSKELETAL: Denies back pain, joint pain, or myalgia. NEUROLOGIC: Denies headache, numbness, or weakness. All systems reviewed & are unremarkable except as noted in HPI and below PMFSH Past Medical History Medical History ADHD Anxiety Chronic headaches Migraines Surgical History Surgical History History of appendectomy History of back surgery History of partial hysterectomy Hx of tonsillectomy Family History Family History Mother Bipolar affect, depressed Father COPD (chronic obstructive pulmonary disease) Diabetes mellitus CHF (congestive heart failure) Liver disease Depression Grandparent Diabetes mellitus COPD (chronic obstructive pulmonary disease) Malignant neoplasm of prostate Sibling Hypertension High cholesterol Other Breast cancer Other Lymphoma Other Arthritis Heart disease Neuropathy Social History Social History Smoking status: Never smoker Alcohol intake: current Drinks per week: 3 Alcohol use details: wine Lack of Transportation: No Lack of Food: Never True Current Housing: I Have Housing Concerned About Future Housing: No Difficulty Paying Gas/Electric Bills: No Difficulty Paying for Meds: No Currently Unemployed: No Education: Associate Degree Difficulty w/ Childcare or Family Care: No Exam Narrative: GENERAL: Well appearing, well-nourished, non-toxic, in no acute distress. HEAD: Normocephalic, atraumatic. ENT: Mucous membranes moist. No signs of angioedema. Airway patent. No stridor. No swelling of lips or tongue. Uvula midline. No tonsillar hypertrophy. NECK: Supple. No adenopathy, no masses. RESPIRATORY: Airway patent, respirations nonlabored. Clear to auscultation bilaterally, no rales, rhonchi, wheezing. CARDIOVASCULAR: Regular rate and rhythm without murmurs, rubs, or gallops. Radial pulses 2+ and equal bilaterally. AB
[2022-11-01] MEDS: diphenhydrAMINE HCl INJ 50 MG/ML VIAL 25 MG IV PUSH (19:42)
[2022-11-01] MEDS: methylPREDNISolone SOD SUCC 125 MG VIAL IV PUSH (19:43)
[2022-11-01] MEDS: FAMOTIDINE 20 MG/2 ML VIAL IV PUSH (19:43)
== END 2022-11-01 21:20 | disposition home or self-care (01) ==
PROVIDERS: Emergency Provider Physician Assistant; PCP Family Medicine
DX: T78.40XA Allergy, unspecified, initial encounter (principal); L50.0 Allergic urticaria; Z90.711 Acquired absence of uterus with remaining cervical stump
CPT/HCPCS: 96374; 96375; 99284; J1200; J2930

== ENCOUNTER 2022-11-03 15:36 | Outpatient (CLI) | payer SELFPAY | END 2022-11-03 15:37 | disposition home or self-care (01) | PROVIDERS: PCP Family Medicine; Visit Provider Family Medicine | DX: L50.9 Urticaria, unspecified (principal); T78.40XA Allergy, unspecified, initial encounter | CPT/HCPCS: 36415; 86003 ==

== ENCOUNTER 2022-11-11 09:33 | Outpatient (CLI) | payer OTHER, SELFPAY ==
[2022-11-11 22:31] LABS: Appearance Urine Turbid (Clear); Bacteria Urine 4+ /hpf; Bilirubin Urine Negative (Negative); Blood Urine Negative (Negative); Color Urine Yellow (Yellow); Glucose Urine UA Negative (Negative); Ketones Urine Negative (Negative); Leukocyte Esterase Ur Negative LEU/UL (Negative); Nitrate Urine Negative (Negative); Non Pathogenic Casts 0-2; Protein Urine Negative (Negative); Specific Grav Ur 1.022 (1.001-1.035); Squamous Epithelial Cell Urine Few /hpf (Few); Urobilinogen Urine 0.2 mg/dL (<2.0); WBC Urine 0-5 /hpf
[2022-11-11 23:48] LABS: Add Urine Microscopic? YES
== END 2022-11-11 09:34 | disposition home or self-care (01) ==
LOC: ANHBWCLAB 09:37
PROVIDERS: PCP Family Medicine; Visit Provider Nurse Practitioner Family
DX: R10.9 Unspecified abdominal pain (principal)
CPT/HCPCS: 81001

== ENCOUNTER → 2023-06-24 12:25 | Outpatient (CLI) | payer BC, SELFPAY ==
--- NOTE | ~2023-06-24 | MM_ITS ---
EXAMINATION: MM screening antonio BI w jose cruz HISTORY: Baseline screening mammogram TECHNIQUE: Craniocaudal and mediolateral oblique 3-D tomosynthesis images were obtained and synthetic 2-D images were generated. CAD analysis was submitted and interpreted. COMPARISON: None, baseline BREAST PARENCHYMAL COMPOSITION: There are scattered areas of fibroglandular density. FINDINGS: No suspicious mass, calcification, or architectural distortion are identified in either tiarra ast to suggest malignancy. IMPRESSION: 1. No mammographic evidence of malignancy. 2. Recommend routine screening mammography in one year. BI-RADS Category 1: Negative Reviewed, dictated and finalized at location A. TRACK LAYER
== END ==
PROVIDERS: PCP Nurse Practitioner Adult Health; Visit Provider Nurse Practitioner Adult Health
DX: Z12.31 Encounter for screening mammogram for malignant neoplasm of breast (principal)
CPT/HCPCS: 77063; 77067

== ENCOUNTER 2023-08-31 15:03 | Outpatient (CLI) | payer BC, SELFPAY ==
--- NOTE | ~2023-08-31 | XR_ITS ---
EXAMINATION: XR lumbar spine 2-3V DATE: 08/31/2023 15:32 INDICATION: Nontraumatic low back pain TECHNIQUE: Anteroposterior and lateral views of the lumbar spine, and cone-down lateral view of the l umbosacral junction were obtained. COMPARISON: Lumbar spine MR dated 07/21/2021 FINDINGS: Unchanged 2 mm retrolisthesis L5 on S1. Alignment is otherwise normal.. Vertebral body heights are no rmal. Moderate disc height loss at L5-S1. New mild disc height loss at L4-L5. Sacral arches are intac t. IMPRESSION: 1. Lumbar spondylosis with unchanged moderate disc height loss at L5-S1 and new mild disc height loss at L4-L5. Reviewed, dictated and finalized at location A. NESE TUTOR
[2023-08-31 18:57] LABS: Hematocrit 38.7 % (37.0-47.0); Hemoglobin 12.3 g/dL (12.0-15.0); Mean Corpuscular HGB Conc 31.8 g/dl (32-36); Mean Corpuscular Hemoglobin 28.9 pg (26-34); Mean Corpuscular Volume 91.1 fl (80-100); Mean Platelet Volume 10.5 fl (7.4-10.4); Platelet Count Result 330 k/mm3 (150-375); Red Blood Count 4.25 M/mm3 (4.2-5.4); Red Cell Distribution Width 13.3 % (11.5-14.5); White Blood Count 7.3 K/mm3 (4.5-10.0)
[2023-08-31 20:46] LABS: Alanine Aminotransferase 29 U/L (6-35); Albumin Level 4.2 g/dL (3.5-5.1); Alkaline Phosphatase 103 U/L (38-126); Anion Gap 5 mmol/L (8-16); Aspartate Amino Transferase 47 U/L (14-36); Bilirubin,Total 0.3 mg/dL (0.2-1.3); Blood Urea Nitrogen 11 mg/dL (7-17); Calcium 9.3 mg/dL (8.4-10.2); Carbon Dioxide 27 mmol/L (22-30); Chloride 105 mmol/L (98-107); Cholesterol 180 mg/dL (0-200); Estimated Glomerular Filt Rate > 60; Glucose 92 mg/dL (65-110); HDL Direct 57 mg/dL; Potassium 4.1 mmol/L (3.4-5.0); Sodium 137 mmol/L (137-145); Triglycerides 97 mg/dL (<150)
[2023-08-31 20:57] LABS: LDL Cholesterol Direct 97 mg/dL
[2023-08-31 21:15] LABS: Thyroid Stimulating Hormone 0.108 uIU/mL (0.465-4.680)
[2023-08-31 21:50] LABS: Folic Acid 14.4 ng/mL (2.76->20)
== END 2023-08-31 15:04 | disposition home or self-care (01) ==
LOC: ANHBWCLAB 15:04
PROVIDERS: PCP Nurse Practitioner Adult Health; Visit Provider Nurse Practitioner Adult Health
DX: Z13.9 Encounter for screening, unspecified (principal); L50.0 Allergic urticaria; M47.26 Other spondylosis with radiculopathy, lumbar region
CPT/HCPCS: 36415; 72100; 80053; 80061; 82607; 82746; 82785; 84443; 85027; 86003

== ENCOUNTER 2023-09-02 07:47 | Outpatient (CLI) | payer BC, SELFPAY ==
[2023-09-05 04:49] LABS: Thyroid Peroxidase Antibodies <1 IU/mL (<9)
== END 2023-09-02 07:48 | disposition home or self-care (01) ==
LOC: ANHBWCLAB 07:48
PROVIDERS: PCP Nurse Practitioner Adult Health; Visit Provider Nurse Practitioner Adult Health
DX: R79.89 Other specified abnormal findings of blood chemistry (principal)
CPT/HCPCS: 36415; 86376

== ENCOUNTER 2023-09-11 09:51 | Outpatient (CLI) | payer BC, SELFPAY ==
--- NOTE | ~2023-09-11 | US_ITS ---
EXAMINATION: US thyroid DATE: 09/11/2023 10:24 INDICATION: Other specified abnormal findings of blood chemistry. TECHNIQUE: Multiple ultrasound images of the thyroid were obtained. COMPARISON: None. FINDINGS: The right thyroid lobe measures 5.3 x 2.2 x 1.9 cm. The left thyroid lobe measures 5.3 x 1.6 x 1.5 c m. In the right thyroid lobe, there is a 2.7 cm solid, isoechoic, wider than tall nodule with smooth margin without echogenic foci (TI-RADS TR3). IMPRESSION: 1. Right thyroid nodule. Ultrasound-guided fine needle aspiration is recommended. Reviewed, dictated and finalized at location E. ER FLAP CUTTER IMPRESSION: 1. Right thyroid nodule. Ultrasound-guided fine needle aspiration is recommende dGt
== END 2023-09-11 09:52 | disposition home or self-care (01) ==
PROVIDERS: PCP Nurse Practitioner Adult Health; Visit Provider Nurse Practitioner Adult Health
DX: R79.89 Other specified abnormal findings of blood chemistry (principal); E04.1 Nontoxic single thyroid nodule
CPT/HCPCS: 76536

== ENCOUNTER 2023-11-19 12:27 | Outpatient (CLI) | payer BC, SELFPAY ==
--- NOTE | ~2023-11-19 | US_ITS ---
EXAMINATION: US FNA w image guidance DATE: 11/19/2023 13:49 INDICATION: Nontoxic single thyroid nodule TECHNIQUE: A time-out was performed to verify the patient's name, date of , and procedure to be performed . The procedure and its benefits and risks were discussed with the patient. Risks specifically discus sed included bleeding and infection. The patient understood the risks and agreed to proceed. The neck was prepped and draped in the usual sterile manner. 4 mL 1% lidocaine was used for local anesthesia . 6 passes were made with a 25G needle into the lesion. Appropriate needle location was documented with continuous sonographic guidance. A sterile bandage was applied. There were no immediate compli cations. FINDINGS: Grayscale ultrasound images demonstrate biopsy needles advanced into a 2.7 cm solid isoechoic TI RADS 3 nodule at the inferior right thyroid lobe. IMPRESSION: 1. Successful ultrasound-guided fine needle aspiration of the 2.7 cm TI RADS 3 right thyroid nodule. Reviewed, dictated and finalized at location A.
== END 2023-11-19 12:28 | disposition home or self-care (01) ==
LOC: ANHIMG 12:28
PROVIDERS: PCP Nurse Practitioner Adult Health; Visit Provider Otolaryngology
DX: E04.1 Nontoxic single thyroid nodule (principal)
CPT/HCPCS: 10005; 88172; 88173; 88305

== ENCOUNTER 2024-02-18 13:54 | Outpatient (CLI) | payer BC, SELFPAY ==
[2024-02-25 12:14] LABS: Amphetamine 6062; pH 5.9
[2024-02-25 12:15] LABS: Amphetamines POSITIVE
[2024-02-25 12:16] LABS: Barbiturates NEGATIVE; Oxidant NEGATIVE
[2024-02-25 12:19] LABS: Marijuana Metabolite POSITIVE
[2024-02-25 12:20] LABS: Cocaine Metabolite NEGATIVE
[2024-02-25 12:21] LABS: Benzodiazepines NEGATIVE
[2024-02-25 12:22] LABS: Marijuana Metabolites Comment 148
[2024-02-25 12:23] LABS: Opiates NEGATIVE
== END 2024-02-18 13:55 | disposition home or self-care (01) ==
LOC: ANHBWCLAB 13:55
PROVIDERS: PCP Nurse Practitioner Adult Health; Visit Provider Nurse Practitioner Adult Health
DX: Z79.899 Other long term (current) drug therapy (principal)
CPT/HCPCS: 80299

== ENCOUNTER 2024-02-29 13:28 | Outpatient (CLI) | payer BC, SELFPAY ==
[2024-02-29 20:50] LABS: Thyroid Stimulating Hormone 0.155 uIU/mL (0.465-4.680)
[2024-02-29 21:16] LABS: Free T4 Free Thyroxine 1.14 ng/mL (0.78-2.19)
[2024-03-02 08:29] LABS: Thyroid Peroxidase Antibodies 1 IU/mL (<9)
== END 2024-02-29 13:29 | disposition home or self-care (01) ==
LOC: ANHBWCLAB 13:29
PROVIDERS: PCP Nurse Practitioner Adult Health; Visit Provider Nurse Practitioner Adult Health
DX: E04.1 Nontoxic single thyroid nodule (principal)
CPT/HCPCS: 36415; 84439; 84443; 86376

== ENCOUNTER 2024-09-20 11:20 | Outpatient (CLI) | payer BC, SELFPAY ==
[2024-09-20 19:31] LABS: Add Urine Microscopic? NO; Appearance Urine Clear (Clear); Bilirubin Urine Negative (Negative); Blood Urine Negative (Negative); Color Urine Yellow (Yellow); Glucose Urine UA Negative (Negative); Ketones Urine Negative (Negative); Leukocyte Esterase Ur Negative LEU/UL (Negative); Nitrate Urine Negative (Negative); Protein Urine Negative (Negative); Specific Grav Ur 1.015 (1.001-1.035); Urobilinogen Urine 0.2 mg/dL (<2.0); pH Urine 6.5 (5.0-9.0)
== END 2024-09-20 11:21 | disposition home or self-care (01) ==
LOC: ANHBWCLAB 11:21
PROVIDERS: PCP Nurse Practitioner Adult Health; Visit Provider Nurse Practitioner Adult Health
DX: R39.9 Unspecified symptoms and signs involving the genitourinary system (principal)
CPT/HCPCS: 81003

== ENCOUNTER 2024-10-18 08:17 | Outpatient (CLI) | payer BC, SELFPAY ==
--- NOTE | ~2024-10-18 | MR_ITS ---
EXAMINATION: MR lumbar spine wo con DATE: 10/18/2024 08:47 INDICATION: Lumbar radicular pain TECHNIQUE: Magnetic resonance imaging (MRI) of the lumbar spine was performed without intravenous con trast. Sequences included sagittal T2-weighted FSE, sagittal T2-weighted FS FSE, sagittal T1-weighted FSE, and axial T2-weighted FSE. COMPARISON: 07/21/2021 FINDINGS: 3 mm retrolisthesis L5 on S1. Alignment is otherwise normal. Vertebral body heights are normal. Annul ar fissure and increased in now severe disc height loss with fibrovascular degenerative endplate garay ges at L5-S1. Remaining discs are normal. There are a few small T2 hyperintense lesions in the thorac ic and lumbar spine which are isointense to the surrounding marrow and with fat saturation consistent with hemangiomas. The conus medullaris terminates at L1-L2. There is normal signal in the caudal spi nal cord. Paravertebral soft tissues are unremarkable. The following disc levels are specifically dis cussed: T12-L1: The disc does not extend beyond the endplate margin. There is mild bilateral facet joint oste oarthritis. There is no neural foraminal stenosis. There is no central canal stenosis. L1-L2: The disc does not extend beyond the endplate margin. There is mild right facet joint osteoarth ritis. There is no neural foraminal stenosis. There is no central canal stenosis. L2-L3: The disc does not extend beyond the endplate margin. There is mild bilateral facet joint osteo arthritis. There is no neural foraminal stenosis. There is no central canal stenosis. L3-L4: Small bilateral foraminal zone disc protrusions. There is mild bilateral facet joint osteoarth ritis. There is mild left and minimal right neural foraminal stenosis. There is no central canal sten osis. L4-L5: Small bilateral foraminal zone disc protrusions. There is mild left and moderate right facet j oint osteoarthritis. There is mild bilateral neural foraminal stenosis. There is no central canal darin nosis. L5-S1: Disc is bulging with annular fissure. Interval increase in size of a superimposed left foramin al zone disc extrusion which extends 1.3 cm medial to lateral, 1.2 cm craniocaudally and 7 mm in AP d imension. There are postoperative change of prior left-sided microdiscectomy with left hemilaminotomy including partial resection of the left inferior articular process of L5. There is mild right and se markel left facet joint osteoarthritis. There is mild right and moderate left neural foraminal stenosis . There is also severe stenosis of the left lateral recess with mass effect upon the traversing left S1 nerve root. There is mild central canal stenosis. IMPRESSION: 1. Interval progression of now severe spondylosis at L5-S1 with enlargement of a left foraminal zone disc extrusion with her changes likely prior microdiscectomy. This results in severe narrowing the le ft lateral recess and exerts mass effect upon the traversing left S1 nerve root. Correlate clinically for muscle weakness of plantar flexion, sensory change of the lateral foot and small toe, and depres sed ankle reflex. 2. Unchanged minimal spondylosis in the more cephalad lumbar spine. Reviewed, dictated and finalized at location A. IMPRESSION: 1. Interval progression of now severe spondylosis at L5-S1 with enlargement of a left foraminal zone disc extrusion with her changes likely prior microdiscect loida. This results in severe narrowing the left lateral recess and exerts mass e ffect upon the traversing left S1 nerve root. Correlate clinically for muscle w eakness of plantar flexion, sensory change of the lateral foot and small toe, a nd depressed ankle reflex. 2. Unchanged minimal spondylosis in the more cephalad lumbar spine.
== END 2024-10-18 08:18 | disposition home or self-care (01) ==
LOC: MICIMG 08:18
PROVIDERS: PCP Nurse Practitioner Adult Health; Visit Provider Nurse Practitioner Family
DX: M47.26 Other spondylosis with radiculopathy, lumbar region (principal)
CPT/HCPCS: 72148

== ENCOUNTER 2024-11-01 08:05 | Emergency (ER) | payer BC, OTHER, SELFPAY ==
[2024-11-01 08:11] VITALS: BP 144/97; PULSE 103; RESP 20; TEMP 36.6; O2SAT 100
--- OUTSIDE RECORDS SUMMARY | 2024-11-01 08:12 | XMS_ITS | Clinical Summary ---
Author Organization [employer] [id number] [facility] Address [address] [address] [place] [address] Care Team Providers Care Ammonia Refrigeration Worker Name Role Phone Napoleon Shultz DO Primary Care Provider Priya vailable Social History Tobacco Use Types Packs/Day Years Used Date Smoking Tobacco: Never Assessed Comments Unknown Sex and Gender Information Value Date Recorded Sex Assigned at Not on file Legal Sex Female 11:16 AM CDT Gender Identity Not on file Sexual Orientation Not on file Plan of Treatment Health Maintenance Due Date Last Done Comments DTAP/TDAP/TD VACCINES (1 - Tdap) 2000 HEPATITIS B VACCINES (1 of 3 - 19+ 3-dose series) 2000 HPV/Cotest (21-29) 2002 PAP SMEAR 2002 CERVICAL CANCER SCREENING 12/03/2011 HPV/Cotest (30-65) 12/03/2011 PAP SMEAR 12/03/2011 BREAST CANCER SCREENING 2021 INFLUENZA VACCINE (#1) 2024 HPV VACCINES Aged Out No longer eligi ble based on patient's age to complete this topic PNEUMOCOCCAL VACCINE 0-49 YEARS Aged Out No longer eligible based on patient's age to complete this topic Care Teams Ammonia Refrigeration Worker Relationship Specialty Start Date End Date Napoleon Shultz DO NO ADDRESS ON FILE PCP - General Family Practice 01/12/20
--- OUTSIDE RECORDS SUMMARY | 2024-11-01 08:12 | XMS_ITS | Referral Summary ---
Author Organization [facility] Address [address] [place] [address] Care Team Providers Care Oracle Drm Consultant Name Role Phone Napoleon Shultz DO Primary Care Provider [phone] Allergies Active Allergy Reactions Criticality Noted Date Comments Iodine Swelling,Vomiting Medium 06/20/2020 Shellfish Containing Products Swelling,Vomiting Medium 06/20/2020 Sulfa (Sulfonamide Antibiotics) Hives Medium 08/2019 Medications desvenlafaxine succinate (PRISTIQ) 50 mg 24 hr tabletIndications: Generalized Anxiety Disorder Take 50 mg by mouth nightly Active Adderall XR 20 mg 24 hr capsuleIndications :Attention-Deficit Hyperactivity Disorder Take 1 capsule (20 mg total) by mouth every morning 0 0 Active ibuprofen-famotidi ne 800-26.6 mg tablet Take 3 tablets by mouth daily 0 Active cholecalciferol (VITAMIN D-3) 2000 unit capsuleIndications :Vitamin D Deficiency Take 2,000 Units by mouth nightly Active cyclobenzaprine (FLEXERIL) 5 mg tablet Take 1 tablet (5 mg total) by mouth 3 (three) times a day as needed for muscle spasms 30 tablet 2 1 Active gabapentin (NEURONTIN) 300 mg capsule Take 300 mg by mouth 3 (three) times a day Active benzonatate (TESSALON) 200 mg capsuleIndications :Influenza A Take 1 capsule (200 mg total) by mouth 3 (three) times a day as needed for cough 42 capsule 4 Active Active Problems Problem Noted Date Diagnosed Date Intervertebral disc disorder with radiculopathy of lumbar region 07/02/2020 Overview (07/02/2020): Added automatically from request for surgery [id number] Immunizations Immunization Administration Dates Next Due Influenza, Quadrivalent, Split, Intramuscular Influenza, Quadrivalent, Spl it, Preservative Free, Intramuscular 05/16/2020 Influenza, Unspecified 04/19/2020 Tdap 05/23/2020 Social History Tobacco Use Types Packs/Day Years Used Date Smoking Tobacco: Never Smokeless Tobacco: Never Tobacco Cessation:Counseling Given: No Alcohol Use Standard Drinks/Week Comments Yes 3 (1 standard drink = 0.6 oz pur e alcohol) Comments No Sex and Gender Information Value Date Recorded Sex Assigned at Not on file Legal Sex Female 1:34 PM MOTHER HELPER Gender Identity Female 08/27/2020 9:57 AM MOTHER HELPER Sexual Orientation Choose not to disclose 2020 9:57 AM MOTHER HELPER Last Filed Vital Signs Vital Sign Reading Time Taken Comments Blood Pressure 124/80 07/16/2024 3:51 PM MOTHER HELPER Pulse 117 07/16/2024 3:51 PM MOTHER HELPER Temperature 37.2 C (98.9 F) 07/16/2024 3:51 PM MOTHER HELPER Respiratory Rate 18 07/16/2024 3:51 PM MOTHER HELPER Oxygen Saturation 98% 07/16/2024 3:51 PM MOTHER HELPER Inhaled Oxygen Concentration - - Weight 81.6 kg (180 lb) 07/16/2024 3:51 PM MOTHER HELPER Height 167.6 cm (5' 6 ) 07/16/2024 3:51 PM MOTHER HELPER Body Mass Index 29.05 07/16/2024 3:51 PM MOTHER HELPER Plan of Treatment Not on file Insurance [facility] ACCESS CHOICE Member Subscriber Plan / Payer (Ef fective 2019-Present) Name:Alyssa Matute Member ID:[id number] Relation to Subscriber:Self Name:Alyssa Matute Subscriber ID:[id number] Payer ID:[id number] (NAIC) Type:[place] Address: [address] [employer] [facility] H[facility]/PPO Address: [address] [employer] ACCESS OOS [employer] OOS Advance Directives For more information, please contact: [phone] Documents on File Type Date Recorded Patient Obiee Lead Developer Expl anation ADVANCE DIRECTIVE 06/20/2020 Care Teams Oracle Drm Consultant Relationship Specialty Start Date End Date Napoleon Shultz DO PCP - General Family Medicine 06/20/20
--- OUTSIDE RECORDS SUMMARY | 2024-11-01 08:12 | XMS_ITS | Clinical Summary ---
Author Organization [facility] Address Formerly [facility], later [facility] [place] [address] Care Team Providers Care Mailing Section Clerk Name Role Phone Napoleon Shultz DO Primary Care Provider [phone] Allergies Active Allergy Reactions Criticality Noted Date [...] (07/02/2020): Added automatically from request for surgery [id number] Immunizations Immunization Administration Dates Next Due Influenza, Quadrivalent, Split, Intramuscular Influenza, Quadrivalent, Spl it, Preservative Free, Intramuscular 05/16/2020 Influenza, Unspecified 04/19/2020 Tdap 05/23/2020 Surgical History Surgery Date Site/Laterality Comments TONSILLECTOMY 07/20/1994 - 07/19/1995 HYSTERECTOMY 07/20/2009 - 07/19/2010 partial CORRECTION HAMMER TOE 07/20/2008 - 07/19/2009 Bilateral APPENDECTOMY 07/20/2002 - 07/19/2003 LASIK 07/20/2016 - 07/19/2017 Medical History Medical History Date Comments Anxiety Kidney infection Adhd Insomnia PTSD (post-traumatic stress disorder) Motion sickness Family History Medical History Relation Name Comments Hypertension Brother CHF Father Diabetes Father Heart disease Father Hypertension Father Cancer Paternal Grandfather Heart disease Paternal Grandfather Hypertension Paternal Grandfather Stroke Paternal Grandfather Hypertension Paternal Grandmother Anesthesia problems Neg Hx Relation Name Status Comments Brother Father Paternal Grandfather Paternal Grandmother Social History Tobacco Use Types Packs/Day Years Used Date Smoking Tobacco: Never Smokeless Tobacco: Never Tobacco Cessation:Counseling Given: No Alcohol Use Standard Drinks/Week Comments Yes 3 (1 standard drink = 0.6 oz pur e alcohol) Comments No Sex and Gender Information Value Date Recorded Sex Assigned at Not on file Legal Sex Female 1:34 PM SENIOR SOFTWARE QA ENGINEER Gender Identity Female 08/27/2020 9:57 AM SENIOR SOFTWARE QA ENGINEER Sexual Orientation Choose not to disclose 2020 9:57 AM SENIOR SOFTWARE QA ENGINEER Obstetrics History Last Filed Vital Signs Vital Sign Reading Time Taken Comments Blood Pressure 124/80 07/16/2024 3:51 PM SENIOR SOFTWARE QA ENGINEER Pulse 117 07/16/2024 3:51 PM SENIOR SOFTWARE QA ENGINEER Temperature 37.2 C (98.9 F) 07/16/2024 3:51 PM SENIOR SOFTWARE QA ENGINEER Respiratory Rate 18 07/16/2024 3:51 PM SENIOR SOFTWARE QA ENGINEER Oxygen Saturation 98% 07/16/2024 3:51 PM SENIOR SOFTWARE QA ENGINEER Inhaled Oxygen Concentration - - Weight 81.6 kg (180 lb) 07/16/2024 3:51 PM SENIOR SOFTWARE QA ENGINEER Height 167.6 cm (5' 6 ) 07/16/2024 3:51 PM SENIOR SOFTWARE QA ENGINEER Body Mass Index 29.05 07/16/2024 3:51 PM SENIOR SOFTWARE QA ENGINEER Plan of Treatment Health Maintenance Due Date Last Done Comments Breast Cancer Screening-Mammogram 1981 Depression Screening 1981 Hepatitis C Screening 1981 Varicella Vaccines (1 of 2 - 13+ 2-dose series) 1994 Hepatitis B Screening 12/03/1999 Regular Well Visit/Exam 18-64 12/03/1999 Influenza Vaccine (#1) 2024 0, 04/19/2020, 06/01/2017 DTaP/Tdap/Td Vaccine (2 - Td or Tdap) 05/23/2030 05/23/2020 HPV Vaccines Aged Out No longer eligi ble based on patient's age to complete this topic Pneumococcal vaccine <65 Aged Out No longer eligible based on patient's age to complete this topic Insurance [employer] CHOICE Member Subscriber Plan / Payer (Ef fective 2019-Present) Name:Alyssa Matute Member ID:[id number] Relation to Subscriber:Self Name:Alyssa Matute Subscriber ID:[id number] Payer ID:[id number] (NAIC) Type:[facility] [facility] Address: [address] [email or web address] ACCESS OOS [email or web address] OOS Advance Directives For more information, please contact: [phone] Documents on File Type Date Recorded Patient 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
--- OUTSIDE RECORDS SUMMARY | 2024-11-01 08:12 | XMS_ITS | Clinical Summary ---
Author Organization [facility] Address [address] [place] [address] Care Team Providers Care Trucker Hand Name Role Phone Miguel Tellez MD Primary Care Provider Social History Tobacco Use Types Packs/Day Years Used Date Smoking Tobacco: Never Assessed Comments Unknown Sex and Gender Information Value Date Recorded Sex Assigned at Not on file Legal Sex Female 8:14 PM CDT Gender Identity Not on file Sexual Orientation Not on file Last Filed Vital Signs Vital Sign Reading Time Taken Comments Blood Pressure 110/60 05/26/2016 11:01 AM EARTH MOVING TECHNICIAN Pulse 88 05/26/2016 11:01 AM EARTH MOVING TECHNICIAN Temperature - - Respiratory Rate - - Oxygen Saturation - - Inhaled Oxygen Concentration - - Weight 78.9 kg (174 lb) 05/26/2016 11:01 AM EARTH MOVING TECHNICIAN Height 167.6 cm (5' 6 ) 11/11/2013 9:28 AM CDT Body Mass Index 28.08 11/11/2013 9:28 AM CDT Plan of Treatment Health Maintenance Due Date Last Done Comments Cervical Cancer Screening Pa p Smear (Age 30 to 64) Every 3 Years 1981 Annual Physical 1984 Hepatitis C 12/03/1999 DTaP, Tdap and Td Vaccines ( 1 - Tdap) 2000 Hepatitis B Vaccines (1 of 3 - 19+ 3-dose series) 2000 Cervical Cancer Screening Pa p with HPV Testing (Age 30 to 64) Every 5 Years 12/03/2011 Cervical Cancer Screening with HPV 12/03/2011 Mammogram Screening 2021 COVID-19 Vaccine (2023-2 5 season) 2024 HPV Vaccines Aged Out No longer eligi ble based on patient's age to complete this topic Meningococcal B Vaccine Aged Out No l onger eligible based on patient's age to complete this topic Meningococcal Vaccine Aged Out No jazmine denisa eligible based on patient's age to complete this topic Pneumococcal Vaccine: Pediat rics (0 to 5 Years) and At-Risk Patients (6 to 49 Years) Aged Out No longer eligible b ased on patient's age to complete this topic RSV Immunizations Under 20 Months Aged Out No longer eligible based on patient's age to complete this topic Care Teams Trucker Hand Relationship Specialty Start Date End Date Miguel Tellez MD [address] [id number] PCP - General 05/26/16
--- NOTE | 2024-11-01 08:18 | PC.NURSE ---
SHARATH Sorto RN with [facility], contacted at 0810. States arrival approx within 20-30 min. [facility] contacted at 0812. EDP made aware of pt complaints.
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
--- OUTSIDE RECORDS SUMMARY | 2024-11-01 09:29 | XMS_ITS | Clinical Summary ---
Author Organization [facility] Address [address] [place] [address] Care Team Providers Care Project Economist Name Role Phone Miguel Tellez MD Primary [...] Comments Blood Pressure 110/60 05/26/2016 11:01 AM OPERATIONAL INTELLIGENCE ANALYST Pulse 88 05/26/2016 11:01 AM OPERATIONAL INTELLIGENCE ANALYST Temperature - - Respiratory Rate - - Oxygen Saturation - - Inhaled Oxygen Concentration - - Weight 78.9 kg (174 lb) 05/26/2016 11:01 AM OPERATIONAL INTELLIGENCE ANALYST Height 167.6 cm (5' 6 ) 11/11/2013 [...] age to complete this topic Care Teams Project Economist Relationship Specialty Start Date End Date Miguel Tellez MD [address] [id number] PCP - General 05/26/16
--- OUTSIDE RECORDS SUMMARY | 2024-11-01 09:29 | XMS_ITS | Referral Summary ---
Author Organization [facility] Address [address] [place] [address] Care Team Providers Care Intake Worker Name Role Phone Napoleon Shultz DO Primary Care Provider [phone] Allergies Active Allergy Reactions Criticality Noted Date [...] (07/02/2020): Added automatically from request for surgery [id number] Immunizations Immunization Administration Dates Next Due Influenza, [...] on file Legal Sex Female 1:34 PM ELECTRIC BLANKET WIRER Gender Identity Female 08/27/2020 9:57 AM ELECTRIC BLANKET WIRER Sexual Orientation Choose not to disclose 2020 9:57 AM ELECTRIC BLANKET WIRER Last Filed Vital Signs Vital Sign Reading Time Taken Comments Blood Pressure 124/80 07/16/2024 3:51 PM ELECTRIC BLANKET WIRER Pulse 117 07/16/2024 3:51 PM ELECTRIC BLANKET WIRER Temperature 37.2 C (98.9 F) 07/16/2024 3:51 PM ELECTRIC BLANKET WIRER Respiratory Rate 18 07/16/2024 3:51 PM ELECTRIC BLANKET WIRER Oxygen Saturation 98% 07/16/2024 3:51 PM ELECTRIC BLANKET WIRER Inhaled Oxygen Concentration - - Weight 81.6 kg (180 lb) 07/16/2024 3:51 PM ELECTRIC BLANKET WIRER Height 167.6 cm (5' 6 ) 07/16/2024 3:51 PM ELECTRIC BLANKET WIRER Body Mass Index 29.05 07/16/2024 3:51 PM ELECTRIC BLANKET WIRER Plan of Treatment Not on file Insurance [facility] ACCESS CHOICE Member Subscriber Plan / Payer (Ef fective 2019-Present) Name:Alyssa Matute Member ID:[id number] Relation to Subscriber:Self Name:Alyssa Matute Subscriber ID:[id number] Payer ID:[id number] (NAIC) Type:[employer] Address: [address] [employer] [facility] HMO/PPO Address: [address] [address] ACCESS OOS [employer] OOS Advance Directives For more information, please contact: [phone] Documents on File Type Date Recorded Patient Check Out Cashier Expl anation ADVANCE DIRECTIVE 06/20/2020 Care Teams Intake Worker Relationship Specialty Start Date End Date Napoleon Shultz DO PCP - General Family Medicine 06/20/20
--- OUTSIDE RECORDS SUMMARY | 2024-11-01 09:29 | XMS_ITS | Clinical Summary ---
Author Organization [employer] [id number] [facility] Address [address] [facility] [place] [address] Care Team Providers Care Specialized Language Instructor Name Role Phone Napoleon Shultz DO Primary [...] age to complete this topic Care Teams Specialized Language Instructor Relationship Specialty Start Date End Date Napoleon Shultz DO NO ADDRESS ON FILE PCP - General Family Practice 01/12/20
--- OUTSIDE RECORDS SUMMARY | 2024-11-01 09:29 | XMS_ITS | Clinical Summary ---
Author Organization [facility] Address [facility] [place] [address] Care Team Providers Care Ip Architect Name Role Phone Napoleon Shultz DO Primary Care Provider [phone] Allergies Active Allergy Reactions Criticality Noted Date [...] (07/02/2020): Added automatically from request for surgery [id number] Immunizations Immunization Administration Dates Next Due Influenza, [...] on file Legal Sex Female 1:34 PM REBAR FABRICATOR Gender Identity Female 08/27/2020 9:57 AM REBAR FABRICATOR Sexual Orientation Choose not to disclose 2020 9:57 AM REBAR FABRICATOR Obstetrics History Last Filed Vital Signs Vital Sign Reading Time Taken Comments Blood Pressure 124/80 07/16/2024 3:51 PM REBAR FABRICATOR Pulse 117 07/16/2024 3:51 PM REBAR FABRICATOR Temperature 37.2 C (98.9 F) 07/16/2024 3:51 PM REBAR FABRICATOR Respiratory Rate 18 07/16/2024 3:51 PM REBAR FABRICATOR Oxygen Saturation 98% 07/16/2024 3:51 PM REBAR FABRICATOR Inhaled Oxygen Concentration - - Weight 81.6 kg (180 lb) 07/16/2024 3:51 PM REBAR FABRICATOR Height 167.6 cm (5' 6 ) 07/16/2024 3:51 PM REBAR FABRICATOR Body Mass Index 29.05 07/16/2024 3:51 PM REBAR FABRICATOR Plan of Treatment Health Maintenance Due Date [...] patient's age to complete this topic Insurance [employer] CHOICE Member Subscriber Plan / Payer (Ef fective 2019-Present) Name:Alyssa Matute Member ID:[id number] Relation to Subscriber:Self Name:Alyssa Matute Subscriber ID:[id number] Payer ID:[id number] (NAIC) Type:[employer] [facility] Address: [address] [employer] OOS Advance Directives For more information, please contact: [phone] Documents on File Type Date Recorded Patient Micro Paleontologist Expl anation ADVANCE DIRECTIVE 06/20/2020 Care Teams Ip Architect Relationship Specialty Start Date End Date Napoleon Shultz DO PCP - General Family Medicine 06/20/20
[2024-11-01] MEDS: EMTRICITABINE-TENOFOVIR 100 MG-150 MG TABLET 2 TAB PO (12:16)
[2024-11-01] MEDS: ONDANSETRON HCL ODT 4 MG TABLET PO (12:17)
[2024-11-01] MEDS: DOXYCYCLINE HYCLATE 100 MG TABLET PO (12:17)
[2024-11-01] MEDS: RALTEGRAVIR 400 MG TABLET PO (12:17)
[2024-11-01] MEDS: metroNIDAZOLE 500 MG TABLET PO (12:17)
[2024-11-01] MEDS: TETANUS,DIPHTHERIA,AC PERTUSSIS ADULT (0.5 ML) BOOSTRIX IM (12:18)
[2024-11-01] MEDS: LIDOCAINE 1% LOCAL INJ 10 ML VIAL 2.1 ML XX (12:19)
[2024-11-01] MEDS: cefTRIAXone 1 GM VIAL 0.5 GM IM (12:19)
[2024-11-01 12:32] LABS: BEDSIDEPREGUCG Negative (Negative)
[2024-11-01 12:39] LABS: Basophils Absolute Auto 0.1 K/mm3 (0.0-0.1); Basophils Percent Auto 0.6 % (0.2-1.2); Eosinophils Absolute Auto 0.1 K/mm3 (0-0.3); Hematocrit 37.5 % (37.0-47.0); Hemoglobin 12.2 g/dL (12.0-15.0); Immature Granulocyte Absolute 0.03 K/mm3 (0.00-0.031); Immature Granulocyte Percent A 0.4 % (0-0.5); Lymphocytes Absolute Auto 2.31 K/mm3 (0.9-3.2); Mean Corpuscular HGB Conc 32.5 g/dl (32-36); Mean Corpuscular Volume 92.4 fl (80-100); Mean Platelet Volume 9.7 fl (7.4-10.4); Monocytes Absolute Auto 0.4 K/mm3 (0.1-0.6); Monocytes Percent Auto 5.1 % (2.6-8.5); Neutrophils Absolute Auto 5.4 K/mm3 (1.3-6.7); Neutrophils Percent Auto 64.9 % (45.5-73.1); Platelet Count Result 310 k/mm3 (150-375); Red Blood Count 4.06 M/mm3 (4.2-5.4); Red Cell Distribution Width 13.3 % (11.5-14.5); White Blood Count 8.3 K/mm3 (4.5-10.0)
[2024-11-01 12:49] LABS: Alanine Aminotransferase 33 U/L (6-35); Albumin Level 4.2 g/dL (3.5-5.1); Alkaline Phosphatase 82 U/L (38-126); Anion Gap 10 mmol/L (4-12); Aspartate Amino Transferase 38 U/L (14-36); Bilirubin,Total 0.4 mg/dL (0.2-1.3); Blood Urea Nitrogen 10 mg/dL (7-17); Calcium 8.7 mg/dL (8.4-10.2); Carbon Dioxide 28 mmol/L (22-30); Chloride 103 mmol/L (98-107); Estimated CRCL calculation 76 ml/min; Estimated Glomerular Filt Rate > 60; Glucose 98 mg/dL (65-110); Potassium 3.5 mmol/L (3.4-5.0); Sodium 141 mmol/L (137-145)
[2024-11-01 12:50] LABS: Add Urine Microscopic? YES; Appearance Urine Cloudy (Clear); Bacteria Urine 4+ /hpf; Bilirubin Urine Negative (Negative); Blood Urine 1+ (Negative); Color Urine Yellow (Yellow); Glucose Urine UA Negative (Negative); Ketones Urine Negative (Negative); Leukocyte Esterase Ur 3+ LEU/UL (Negative); Nitrate Urine Negative (Negative); Protein Urine Negative (Negative); Prothrombin Time 13.6 Seconds (11.1-14.7); RBC Urine 0-2 /hpf (0-2); Specific Grav Ur 1.007 (1.001-1.035); Squamous Epithelial Cell Urine None Seen /hpf (Few); Urobilinogen Urine 0.2 mg/dL (<2.0); WBC Urine >100 /hpf (0-3)
[2024-11-01 12:51] LABS: Partial Thromboplastin Time 26.4 Seconds (22.3-36.8)
[2024-11-01 13:26] LABS: Hepatitis B Surface Antigen Negative (Negative)
[2024-11-01 13:32] LABS: HAV RESULT Negative (Negative); Hepatitis B Core IgM Result Negative (Negative)
[2024-11-01 13:37] LABS: HIV 1/2 Ab P24 Ag Result Negative (Negative)
[2024-11-01 13:43] LABS: Hepatitis C Virus Antibody Negative (Negative)
[2024-11-01 13:44] VITALS: BP 133/71; PULSE 83; RESP 16; O2SAT 97
[2024-11-01 13:54] LABS: Trichomonas Vag PCR NOT DETECTED (NOT DETECTE)
[2024-11-01 14:16] LABS: Chlamydia trachomatis NOT DETECTED (NOT DETECTE); Neisseria gonorrhoeae PCR NOT DETECTED (NOT DETECTE)
[2024-11-05 08:03] LABS: Bacterial Vaginosis NEGATIVE (NEGATIVE)
== END 2024-11-01 13:45 | disposition home or self-care (01) ==
PROVIDERS: Emergency Provider Physician Assistant; PCP Nurse Practitioner Adult Health
DX: S20.219A Contusion of unspecified front wall of thorax, initial encounter (principal); S10.93XA Contusion of unspecified part of neck, initial encounter; S70.12XA Contusion of left thigh, initial encounter; S70.11XA Contusion of right thigh, initial encounter; T74.21XA Adult sexual abuse, confirmed, initial encounter; F90.9 Attention-deficit hyperactivity disorder, unspecified type; F41.9 Anxiety disorder, unspecified; Z23 Encounter for immunization; R82.998 Other abnormal findings in urine
CPT/HCPCS: 36415; 80053; 80074; 81001; 81025; 81513; 85025; 85610; 85730; 86703; 87086; 87186; 87491; 87591; 87661; 90471; 90715; 96372; 99285; A9270; G0432; J0696; J2003

== ENCOUNTER 2024-12-13 09:30 | Outpatient (CLI) | payer BC, SELFPAY ==
--- OUTSIDE RECORDS SUMMARY | 2024-12-13 09:37 | XMS_ITS | Clinical Summary ---
Author Organization [facility] Address [address] [place] [address] Care Team Providers Care Server Manager Name Role Phone Napoleon Shultz DO Primary Care Provider +1 [phone] Allergies Active Allergy Reactions Criticality Noted Date [...] (07/02/2020): Added automatically from request for surgery [id number] Immunizations Immunization Administration Dates Next Due Influenza, [...] on file Legal Sex Female 1:34 PM TIRE BUILDER HEAVY SERVICE Gender Identity Female 08/27/2020 9:57 AM TIRE BUILDER HEAVY SERVICE Sexual Orientation Choose not to disclose 2020 9:57 AM TIRE BUILDER HEAVY SERVICE Obstetrics History Last Filed Vital Signs Vital Sign Reading Time Taken Comments Blood Pressure 124/80 07/16/2024 3:51 PM TIRE BUILDER HEAVY SERVICE Pulse 117 07/16/2024 3:51 PM TIRE BUILDER HEAVY SERVICE Temperature 37.2 C (98.9 F) 07/16/2024 3:51 PM TIRE BUILDER HEAVY SERVICE Respiratory Rate 18 07/16/2024 3:51 PM TIRE BUILDER HEAVY SERVICE Oxygen Saturation 98% 07/16/2024 3:51 PM TIRE BUILDER HEAVY SERVICE Inhaled Oxygen Concentration - - Weight 81.6 kg (180 lb) 07/16/2024 3:51 PM TIRE BUILDER HEAVY SERVICE Height 167.6 cm (5' 6) 07/16/2024 3:51 PM TIRE BUILDER HEAVY SERVICE Body Mass Index 29.05 07/16/2024 3:51 PM TIRE BUILDER HEAVY SERVICE Plan of Treatment Health Maintenance Due Date Last Done Comments Breast Cancer Screening-Mammogram 1981 Depression Screening 1981 Hepatitis C Screening 1981 Varicella Vaccines (1 of 2 - 13+ 2-dose series) 1994 Hepatitis B Screening 12/03/1999 Regular Well Visit/Exam 18-64 12/03/1999 Influenza Vaccine (Season Ended) 2025 05/16/2020, 04/19/2020, 06/01/2017 DTaP/Tdap/Td Vaccine (2 - Td or Tdap) 05/23/2030 05/23/2020 HPV Vaccines Aged Out No longer eligi ble based on patient's age to complete this topic Pneumococcal vaccine <65 Aged Out No longer eligible based on patient's age to complete this topic Insurance [employer] CHOICE Member Subscriber Plan / Payer (Ef fective 2019-Present) Name:Alyssa Matute Member ID:[id number] Relation to Subscriber:Self Name:Alyssa Matute Subscriber ID:[id number] Payer ID:[id number] (NAIC) Type:[facility] Address: [address] [employer] ACCESS OOS [employer] ACCESS OOS Advance Directives For more information, please contact: [phone] Documents on File Type Date Recorded Patient Rn Travel Expl anation ADVANCE DIRECTIVE 06/20/2020 Care Teams Server Manager Relationship Specialty Start Date End Date Napoleon Shultz DO PCP - General Family Medicine 06/20/20
--- OUTSIDE RECORDS SUMMARY | 2024-12-13 09:37 | XMS_ITS | Clinical Summary ---
Author Organization [facility] Address [address], [place] [address] Phone Care Team Providers Care Military Source Operations Officer Name Role Phone Napoleon Shultz Primary Care Provider +1- [phone] Allergies Active Allergy Reactions Criticality Noted Date Comments Iodine Unknown 02/21/2020 Sulfa Antibiotics Rash 02/21/2020 Medications venlafaxine (EFFEXOR) 25 MG Tablet Take 25 mg by mouth 3 times daily. Active amphetamine-dex troamphetamine (ADDERALL) 15 MG Tablet Take 15 mg by mouth 2 times daily. Active Doxylamine Succinate, Sleep, (UNISOM) 25 MG Tablet Take 25 mg by mouth nightly as needed. Active gabapentin (NEURONTIN) 300 MG Capsule Take 300 mg by mouth 2 times daily. Active Desvenlafaxine Succinate (Pristiq) 50 MG TABLET SR 24 HR Take by mouth. Active Desvenlafaxine Succinate (Pristiq) 50 MG TABLET SR 24 HR Take by mouth. Active other by Other route. OTC nerve Active Duexis 800-26.6 MG Tablet 05/28/2020 Active Active Problems No known active problems Family History Medical History Relation Name Comments Chronic Obstructive Pulmonary Disease Father Congestive Heart Failure Father Depression Father Diabetes Father Liver Disease Father Bipolar Disorder Mother Relation Name Status Comments Father Mother Social History Tobacco Use Types Packs/Day Years Used Date Smoking Tobacco: Never Smokeless Tobacco: Never Alcohol Use Standard Drinks/Week Comments Yes 0 (1 standard drink = 0.6 oz pur e alcohol) occasional Comments No Sex and Gender Information Value Date Recorded Sex Assigned at Not on file Legal Sex Female 3:51 AM APPRENTICE EMBALMER Gender Identity Not on file Sexual Orientation Not on file Last Filed Vital Signs Vital Sign Reading Time Taken Comments Blood Pressure 122/66 06/04/2020 5:01 PM APPRENTICE EMBALMER Pulse 98 06/04/2020 5:01 PM APPRENTICE EMBALMER Temperature 37.4 C (99.3 F) 06/04/2020 5:01 PM APPRENTICE EMBALMER Respiratory Rate 16 03/28/2020 9:45 AM CDT Oxygen Saturation 99% 06/04/2020 5:01 PM APPRENTICE EMBALMER Inhaled Oxygen Concentration - - Weight 80.9 kg (178 lb 6.4 oz) 03/28/2020 9:45 A M CDT Height 167.6 cm (5' 6) 03/28/2020 9:45 AM CDT Body Mass Index 28.79 03/28/2020 9:45 AM CDT Plan of Treatment Health Maintenance Due Date Last Done Comments Hepatitis C Virus (HCV) Screening 1981 Hepatitis B Immunization (1 of 3 - 19+ 3-dose series) 2000 Discussion re Starting/Frequency of Mammograms 2021 Influenza Immunization (#1) 03/20/202404/20, 06/01/2017 SARS-COV-2 Immunization ( season) 2024 11/09/2020, 10/19/2020 Respiratory Syncytial Virus (RSV) Immunization (Adult) (1 - 1-dose 75+ series) 2056 Cervical Cancer Screening (CCS) Discontinued Pap Smear Discontinued 11/25/2004 DTaP/Tdap/Td Immunization Discontinued 05/23/2020 TdaP Immunization Completed 05/23/2020 HPV/Cotest Discontinued Meningococcal Immunization (ACWY) Aged Out No longer eligible based on patient's age to complete this topic Pneumococcal Immunization Combined Aged Out No longer eligible based on patient's age to complete this topic Rotavirus Immunization Aged Out No lo nger eligible based on patient's age to complete this topic [place] [address] [place] [address] Member Subscriber Plan / Payer (Ef fective 2019-Present) Name:Alyssa Matute Member ID:[id number] Relation to Subscriber:Self Name:Alyssa Matute Subscriber ID:[id number] Payer ID:[id number] Type:PPO Address: [address] [address] Care Teams Military Source Operations Officer Relationship Specialty Start Date End Date Napoleon Shultz DO [address] [place] [address] PCP - General Family Medicine 01/10/20
--- OUTSIDE RECORDS SUMMARY | 2024-12-13 09:37 | XMS_ITS | Clinical Summary ---
Author Organization [id number] Address [address] [place] [address] Care Team Providers Care Immigration Case Manager Name Role Phone Napoleon Shultz DO [...] 19+ 3-dose series) 2000 HPV/Cotest (21-29) 2002 CERVICAL CANCER SCREENING 12/03/2011 HPV/Cotest (30-65) 12/03/2011 PAP SMEAR 12/03/2011 BREAST CANCER SCREENING 2021 INFLUENZA VACCINE (#1) 2024 HPV VACCINES Aged Out No longer eligi ble based on patient's age to complete this topic Care Teams Immigration Case Manager Relationship Specialty Start Date End Date Napoleon Shultz DO NO ADDRESS ON FILE PCP - General Family Practice 01/12/20
--- OUTSIDE RECORDS SUMMARY | 2024-12-13 09:37 | XMS_ITS | Referral Summary ---
Author Organization [facility] Address [address] [place] [address] Care Team Providers Care Cupola Patcher Name Role Phone Napoleon Shultz DO Primary Care Provider +1 -[phone] Allergies Active Allergy Reactions Criticality Noted Date [...] (07/02/2020): Added automatically from request for surgery [id number] Immunizations Immunization Administration Dates Next Due Influenza, [...] on file Legal Sex Female 1:34 PM MEDICAL TECHNOLOGIST CHIEF Gender Identity Female 08/27/2020 9:57 AM MEDICAL TECHNOLOGIST CHIEF Sexual Orientation Choose not to disclose 2020 9:57 AM MEDICAL TECHNOLOGIST CHIEF Last Filed Vital Signs Vital Sign Reading Time Taken Comments Blood Pressure 124/80 07/16/2024 3:51 PM MEDICAL TECHNOLOGIST CHIEF Pulse 117 07/16/2024 3:51 PM MEDICAL TECHNOLOGIST CHIEF Temperature 37.2 C (98.9 F) 07/16/2024 3:51 PM MEDICAL TECHNOLOGIST CHIEF Respiratory Rate 18 07/16/2024 3:51 PM MEDICAL TECHNOLOGIST CHIEF Oxygen Saturation 98% 07/16/2024 3:51 PM MEDICAL TECHNOLOGIST CHIEF Inhaled Oxygen Concentration - - Weight 81.6 kg (180 lb) 07/16/2024 3:51 PM MEDICAL TECHNOLOGIST CHIEF Height 167.6 cm (5' 6) 07/16/2024 3:51 PM MEDICAL TECHNOLOGIST CHIEF Body Mass Index 29.05 07/16/2024 3:51 PM MEDICAL TECHNOLOGIST CHIEF Plan of Treatment Not on file Insurance [facility] ACCESS CHOICE Member Subscriber Plan / Payer (Ef fective 2019-Present) Name:Alyssa Matute Member ID:[id number] Relation to Subscriber:Self Name:Alyssa Matute Subscriber ID:[id number] Payer ID:[id number] (NAIC) Type:[employer] Address: [address] [employer] Member Subscriber Plan / Payer (Ef fective 2020-Present) Name:Alyssa Matute Relation to Subscriber:Self Name:Alyssa Matute Payer ID:[id number] (NAIC) Type:[facility] HMO/PPO Address: [address] [email or web address] ACCESS OOS [email or web address] ACCESS OOS Advance Directives For more information, please contact: [phone] Documents on File Type Date Recorded Patient On Site Property Manager Expl anation ADVANCE DIRECTIVE 06/20/2020 Care Teams Cupola Patcher Relationship Specialty Start Date End Date Napoleon Shultz DO PCP - General Family Medicine 06/20/20
[2024-12-13 19:16] LABS: Add Urine Microscopic? YES; Appearance Urine Cloudy (Clear); Bacteria Urine 4+ /hpf; Bilirubin Urine Negative (Negative); Blood Urine 2+ (Negative); Color Urine Yellow (Yellow); Glucose Urine UA Negative (Negative); Ketones Urine Negative (Negative); Leukocyte Esterase Ur 3+ LEU/UL (Negative); Nitrate Urine Positive (Negative); Non Pathogenic Casts 0-2; Protein Urine Negative (Negative); RBC Urine 0-2 /hpf (0-2); Specific Grav Ur 1.007 (1.001-1.035); Squamous Epithelial Cell Urine None Seen /hpf (Few); Urobilinogen Urine 0.2 mg/dL (<2.0); WBC Urine >100 /hpf (0-3)
== END 2024-12-13 09:31 | disposition home or self-care (01) ==
LOC: ANHBWCLAB 09:33
PROVIDERS: PCP Nurse Practitioner Adult Health; Visit Provider Nurse Practitioner Adult Health
DX: R39.9 Unspecified symptoms and signs involving the genitourinary system (principal)
CPT/HCPCS: 81001; 87077; 87086; 87186

== ENCOUNTER 2025-01-12 14:30 | Outpatient (CLI) | payer BC, SELFPAY ==
[2025-01-12 18:23] LABS: Hematocrit 38.9 % (37.0-47.0); Hemoglobin 12.2 g/dL (12.0-15.0); Mean Corpuscular HGB Conc 31.4 g/dl (32-36); Mean Corpuscular Hemoglobin 29.9 pg (26-34); Mean Corpuscular Volume 95.3 fl (80-100); Mean Platelet Volume 10.1 fl (7.4-10.4); Platelet Count Result 304 k/mm3 (150-375); Red Blood Count 4.08 M/mm3 (4.2-5.4); Red Cell Distribution Width 13.2 % (11.5-14.5); White Blood Count 7.3 K/mm3 (4.5-10.0)
[2025-01-12 18:36] LABS: Alanine Aminotransferase 24 U/L (6-35); Albumin Level 4.3 g/dL (3.5-5.1); Alkaline Phosphatase 81 U/L (38-126); Anion Gap 11 mmol/L (4-12); Aspartate Amino Transferase 64 U/L (14-36); Bilirubin,Total 0.3 mg/dL (0.2-1.3); Blood Urea Nitrogen 12 mg/dL (7-17); Calcium 9.2 mg/dL (8.4-10.2); Carbon Dioxide 29 mmol/L (22-30); Chloride 103 mmol/L (98-107); Cholesterol 210 mg/dL (0-200); Estimated Glomerular Filt Rate > 60; Glucose 81 mg/dL (65-110); HDL Direct 66 mg/dL; Potassium 3.4 mmol/L (3.4-5.0); Sodium 143 mmol/L (137-145); Total Protein 8.3 g/dL (6.3-8.2); Triglycerides 139 mg/dL (<150)
[2025-01-12 18:46] LABS: LDL Cholesterol Direct 101 mg/dL
[2025-01-12 19:05] LABS: Thyroid Stimulating Hormone 0.614 uIU/mL (0.465-4.680)
[2025-01-12 19:20] LABS: HIV 1/2 Ab P24 Ag Result Negative (Negative)
[2025-01-12 20:14] LABS: Free T4 Free Thyroxine 1.26 ng/dL (0.78-2.19); Vitamin D 25 Hydroxy 34.6 ng/mL
[2025-01-12 20:18] LABS: Syphilis IgG/IgM Antibody Non-Reactive (Nonreactive)
[2025-01-12 20:40] LABS: Hepatitis C Virus Antibody Negative (Negative)
== END 2025-01-12 14:31 | disposition home or self-care (01) ==
LOC: ANHBWCLAB 14:33
PROVIDERS: PCP Nurse Practitioner Adult Health; Visit Provider Nurse Practitioner Adult Health
DX: Z00.00 Encounter for general adult medical examination without abnormal findings (principal); Z11.59 Encounter for screening for other viral diseases; Z11.4 Encounter for screening for human immunodeficiency virus [HIV]; E04.1 Nontoxic single thyroid nodule
CPT/HCPCS: 36415; 80053; 80061; 82306; 84439; 84443; 85027; 86593; 86703; 86803; G0432

== ENCOUNTER 2025-05-16 15:58 | Outpatient (CLI) | payer BC, SELFPAY ==
--- OUTSIDE RECORDS SUMMARY | 2025-05-16 17:49 | XMS_ITS | Clinical Summary ---
Author Organization [facility] Address [address], [place] [address] Phone Care Team Providers Care Laboratory Aide Name Role Phone Napoleon Shultz Primary Care Provider +1- [phone] Allergies Active Allergy Reactions Criticality Noted Date [...] on file Legal Sex Female 3:51 AM REGIONAL SALES CONSULTANT Gender Identity Not on file Sexual Orientation Not on file Last Filed Vital Signs Vital Sign Reading Time Taken Comments Blood Pressure 122/66 06/04/2020 5:01 PM REGIONAL SALES CONSULTANT Pulse 98 06/04/2020 5:01 PM REGIONAL SALES CONSULTANT Temperature 37.4 C (99.3 F) 06/04/2020 5:01 PM REGIONAL SALES CONSULTANT Respiratory Rate 16 03/28/2020 9:45 AM CDT Oxygen Saturation 99% 06/04/2020 5:01 PM REGIONAL SALES CONSULTANT Inhaled Oxygen Concentration - - Weight 80.9 kg (178 lb 6.4 oz) 03/28/2020 9:45 A M CDT Height 167.6 cm (5' 6) 03/28/2020 9:45 AM CDT Body Mass Index 28.79 03/28/2020 9:45 AM CDT Plan of Treatment Health Maintenance Due Date Last Done Comments Hepatitis C Virus (HCV) Screening 1981 Hepatitis B Immunization (1 of 3 - 19+ 3-dose series) 2000 Human Papillomavirus (HPV) Immunization (1 - 3-dose SCDM series) 2008 Influenza Immunization (#1) 03/20/202504/20, 06/01/2017 SARS-COV-2 Immunization ( season) 2025 11/09/2020, 10/19/2020 Respiratory Syncytial Virus (RSV) Immunization (Adult) (1 - 1-dose 75+ series) 2056 DTaP/Tdap/Td Immunization Discontinued 05/23/2020 TdaP Immunization Completed 05/23/2020 Meningococcal Immunization (ACWY) Aged Out No longer eligible based on patient's age to complete this topic Pneumococcal Immunization Combined Aged Out No longer eligible based on patient's age to complete this topic Rotavirus Immunization Aged Out No lo nger eligible based on patient's age to complete this topic [place] [place] [address] Care Teams Laboratory Aide Relationship Specialty Start Date End Date Napoleon Shultz DO [address] [place] [address] PCP - General Family Medicine 01/10/20
--- OUTSIDE RECORDS SUMMARY | 2025-05-16 17:49 | XMS_ITS | Clinical Summary ---
Author Organization [facility] Address [address] [place] [address] Care Team Providers Care Formwork Carpenter Name Role Phone Napoleon Shultz DO Primary Care Provider +1 -[phone] Allergies Active Allergy Reactions Criticality Noted Date [...] by mouth every morning 0 0 Active cholecalciferol (VITAMIN D-3) 2000 unit [...] needed for cough 42 capsule 4 Active meloxicam (MOBIC) 7.5 mg tabletIndications: lumbar degenerative disc disease Take 1 tablet (7.5 mg total) by mouth daily 30 tablet 11 5 03/30/20 26 Active Active Problems Problem Noted Date Diagnosed Date Intervertebral disc disorder with radiculopathy of lumbar region 07/02/2020 Overview (07/02/2020): Added automatically from request for surgery [id number] Encounters Date Type Department Care Team Description 03/30/2025 4:39 PM CDT - 03/30/2025 11:59 PM CDT Hospital Encounter [facility] [address] [place] [address] Discharge Disposition: Discharge to home or self care 03/30/2025 3:30 PM CDT Office Visit [facility] Medicine Neurosurgery [address] [facility] [address] [place] [address] Claudy Silverman PA Intervertebral disc disorder with radiculopathy of lumbar region (Primary Dx) 03/24/20[facility] [address] [place] [address] Odette Radford from Last 3 Months Immunizations Immunization Administration Dates Next Due Influenza, [...] on file Legal Sex Female 1:34 PM GUARD SERGEANT Gender Identity Female 08/27/2020 9:57 AM GUARD SERGEANT Sexual Orientation Choose not to disclose 2020 9:57 AM GUARD SERGEANT Obstetrics History Last Filed Vital Signs Vital Sign Reading Time Taken Comments Blood Pressure 124/80 07/16/2024 3:51 PM GUARD SERGEANT Pulse 117 07/16/2024 3:51 PM GUARD SERGEANT Temperature 37.2 C (98.9 F) 07/16/2024 3:51 PM GUARD SERGEANT Respiratory Rate 18 07/16/2024 3:51 PM GUARD SERGEANT Oxygen Saturation 98% 07/16/2024 3:51 PM GUARD SERGEANT Inhaled Oxygen Concentration - - Weight 68.5 kg (151 lb) 03/30/2025 3:55 PM CDT Height 167.6 cm (5' 6) 03/30/2025 3:55 PM CDT Body Mass Index 24.37 03/30/2025 3:55 PM CDT Plan of Treatment Health Maintenance Due Date Last Done Comments Breast Cancer Screening-Mammogram 1981 Depression Screening 1981 Hepatitis C Screening 1981 Varicella Vaccines (1 of 2 - 13+ 2-dose series) 1994 Regular Well Visit/Exam 18-64 12/03/1999 Influenza Vaccine (#1) 2025 3, 06/05/2022, 05/16/2020, Additional history exists DTaP/Tdap/Td Vaccine (3 - Td or Tdap) 05/23/2030 05/23/2020, 05/16/2010, 01/16/2000 HPV Vaccines Completed 05/03/2007, 01/2007, 10/13/2006 Hepatitis B Screening Completed 11/20/2013 , 10/04/2002, 01/25/2001 Pneumococcal vaccine <65 Aged Out No longer eligible based on patient's age to complete this topic Procedures Procedure Name Priority Date/Time Associated Diagnosis Comments NEURO MR OUTSIDE REFERENCE Routine 03/30/2025 4:39 PM CDT from Last 3 Months Results * Neuro MR Outside Reference (03/30/2025 4:39 PM CDT) Impressions [facility] - 03/30/2025 4:39 PM CDT These images are for Reference purposes only and have not been reviewed by [facility]. There will be no report generated by a [facility] Radiologist. Narrative [facility] - 03/30/2025 4:39 PM CDT EXAMINATION: Images For Reference Purposes Only us Claudy ABAD IMG MRI PROCEDURES Fi nal Result [facility] from Last 3 Months Insurance [employer] O[employer] Advance Directives For more information, please contact: [phone] Documents on File Type Date Recorded Patient Auricular Therapist Expl anation ADVANCE DIRECTIVE 06/20/2020 Care Teams Formwork Carpenter Relationship Specialty Start Date End Date Napoleon Shultz DO PCP - General Family Medicine 06/20/20
--- OUTSIDE RECORDS SUMMARY | 2025-05-16 17:49 | XMS_ITS | Clinical Summary ---
Author Organization [id number] [facility] Address [address] [place] [address] Care Team Providers Care Salon Manager Name Role Phone Napoleon Shultz DO [...] (1 of 3 - 19+ 3-dose series) 11/17 HPV/Cotest (21-29) 2002 HPV VACCINES (1 - 3-dose SCDM series) 2008 CERVICAL CANCER SCREENING 12/03/2011 HPV/Cotest (30-65) 12/03/2011 PAP SMEAR 12/03/2011 BREAST CANCER SCREENING 2021 INFLUENZA VACCINE (#1) 2025 Care Teams Salon Manager Relationship Specialty Start Date End Date Napoleon Shultz DO NO ADDRESS ON FILE PCP - General Family Practice 01/12/20
--- OUTSIDE RECORDS SUMMARY | 2025-05-16 17:49 | XMS_ITS | Clinical Summary ---
Author Organization [facility] Address [facility] [place] [address] Care Team Providers Care Fur Joiner Name Role Phone Miguel Tellez MD Primary [...] Comments Blood Pressure 110/60 05/26/2016 11:01 AM WELDER FITTER Pulse 88 05/26/2016 11:01 AM WELDER FITTER Temperature - - Respiratory Rate - - Oxygen Saturation - - Inhaled Oxygen Concentration - - Weight 78.9 kg (174 lb) 05/26/2016 11:01 AM WELDER FITTER Height 167.6 cm (5' 6) 11/11/2013 9:28 AM CDT Body Mass Index 28.08 11/11/2013 9:28 AM CDT Plan of Treatment Health Maintenance Due Date Last Done Comments Cervical Cancer Screening Pa p Smear (Age 30 to 64) Every 3 Years 1981 Annual Physical 1984 Hepatitis C 12/03/1999 DTaP, Tdap and Td Vaccines ( 1 - Tdap) 2000 Hepatitis B Vaccines (1 of 3 - 19+ 3-dose series) 2000 HPV Vaccines (1 - 3-dose SCD M series) 2008 Cervical Cancer Screening Pa p with HPV Testing (Age 30 to 64) Every 5 Years 12/03/2011 Cervical Cancer Screening with HPV 12/03/2011 Mammogram Screening 2021 COVID-19 Vaccine (2024-2 6 season) 2025 Influenza Adult (#1) 2025 Hepatitis A Vaccines Aged Out No long er eligible based on patient's age to complete [...] age to complete this topic Care Teams Fur Joiner Relationship Specialty Start Date End Date Miguel Tellez MD [address] [address] PCP - General 05/26/16
[2025-05-16 19:13] LABS: Add Urine Microscopic? YES; Appearance Urine Turbid (Clear); Glucose Urine UA Negative (Negative); Leukocyte Esterase Ur 1+ LEU/UL (Negative); Nitrate Urine Negative (Negative); Non Pathogenic Casts 0-2; Specific Grav Ur 1.014 (1.001-1.035)
== END 2025-05-16 15:59 | disposition home or self-care (01) ==
LOC: ANHBWCLAB 15:59
PROVIDERS: PCP Nurse Practitioner Adult Health; Visit Provider Nurse Practitioner Adult Health
DX: R39.9 Unspecified symptoms and signs involving the genitourinary system (principal)
CPT/HCPCS: 81001; 87086

== ENCOUNTER 2025-06-08 09:27 | Outpatient (CLI) | payer BC, SELFPAY ==
--- NOTE | ~2025-06-08 | CT_ITS ---
EXAM/PROCEDURE: CT lumbar spine wo con HISTORY: Intervertebral disc disorder lumbar region COMPARISON: None available. TECHNIQUE: Noncontrast enhanced CT of the lumbar spine FINDINGS: Moderate to severe desiccation and disc space narrowing with sclerotic endplate changes and early vacuum phenomenon at L5-S1. Milder degenerative changes at levels above. No large disc herniations or severe spinal canal stenosis seen. No gross acute or aggressive bony or soft tissue process seen. IMPRESSION: Severe degenerative disc changes at L5-S1 but no large disc herniation or severe spinal canal stenosis seen. Consider correlation with lumbar spine MRI for optimal evaluation. Reviewed, dictated and finalized at location A. GEMENT PLANNER IMPRESSION: Severe degenerative disc changes at L5-S1 but no large disc herniation or sever e spinal canal stenosis seen. Consider correlation with lumbar spine MRI for op timal evaluation.
== END 2025-06-08 09:28 | disposition home or self-care (01) ==
LOC: MICIMG 09:28
PROVIDERS: PCP Nurse Practitioner Adult Health
DX: M51.16 Intervertebral disc disorders with radiculopathy, lumbar region (principal); M51.379 Other intervertebral disc degeneration, lumbosacral region without mention of lumbar back pain or lower extremity pain
CPT/HCPCS: 72131

== ENCOUNTER 2025-06-13 10:12 | Outpatient (CLI) | payer BC, SELFPAY ==
--- OUTSIDE RECORDS SUMMARY | 2025-06-13 09:12 | XMS_ITS | Encounter Summary ---
Author Organization [facility] Address [address] [place] [address] Care Team Providers Care Street Cleaner Name Role Phone Napoleon Shultz DO Primary Care Provider [phone] [phone] Reason for Referral * MRI/CAT/PET Scan (Routine) - Closed Specialty Diagnoses / Procedures Referred By Naziaac t Referred To Contact Procedures Neuro CT Outside Reference Claudy Silverman PA [address] [address] Phone: tel: fax: Referral ID Status Reason Start Date Expiration Date Visits Re quested Visits Authorized [id number] Closed 06/13/2025 07/13/2026 1 1 LA OPERATOR Reason for Visit * MRI/CAT/PET Scan (Routine) - Closed Specialty Diagnoses / Procedures Referred By Bridget cochran Referred To Contact Procedures Neuro CT Outside Reference Claudy Silverman PA [address] [facility] [place] [address] Phone: tel: fax: Referral ID Status Reason Start Date Expiration Date Visits Re quested Visits Authorized [id number] Closed 06/13/2025 07/13/2026 1 1 Encounter Details Date Type Department Care Team (Late st Contact Info) Description 06/13/2025 9:12 AM CUPOLA OPERATOR Hospital Encounter [facility]) [address] [place] [address] Arrived Social History Tobacco Use Types Packs/Day Years Used Date Smoking Tobacco: Never Smokeless Tobacco: Never Alcohol Use Standard Drinks/Week Comments Yes 3 (1 standard drink = 0.6 oz pur e alcohol) Comments No Sex and Gender Information Value Date Recorded Sex Assigned at Not on file Legal Sex Female 1:34 PM CUPOLA OPERATOR Gender Identity Female 08/27/2020 9:57 AM CUPOLA OPERATOR Sexual Orientation Choose not to disclose 2020 9:57 AM CUPOLA OPERATOR documented as of this encounter Plan of Treatment Not on file documented as of this encounter Procedures Procedure Name Priority Date/Time Associated Diagnosis Comments NEURO CT OUTSIDE REFERENCE Routine 06/13/2025 9:12 AM CUPOLA OPERATOR documented in this encounter Results * Neuro CT Outside Reference (06/13/2025 9:12 AM CUPOLA OPERATOR) Impressions [facility] - 06/13/2025 9:12 AM CUPOLA OPERATOR These images are for Reference purposes only and have not been reviewed by [facility] Radiology. There will be no report generated by a [facility] Radiologist. Narrative [facility] - 06/13/2025 9:12 AM CUPOLA OPERATOR EXAMINATION: Images For Reference Purposes Only us Claudy ABAD IMG CT PROCEDURES Fin al Result [facility] documented in this encounter Visit Diagnoses Not on filedocumented in this encounter Care Teams Street Cleaner Relationship Specialty Start Date End Date Napoleon Shultz DO PCP - General Family Medicine 06/20/20 documented as of this encounter
--- OUTSIDE RECORDS SUMMARY | 2025-06-13 11:21 | XMS_ITS | Clinical Summary ---
Author Organization [facility] Address [address] [place] [address] Phone Care Team Providers Care Receptionist Nurse Name Role Phone Napoleon Shultz Primary Care Provider +1- [phone] Allergies Active Allergy Reactions Criticality Noted Date [...] on file Legal Sex Female 3:51 AM PROCESS LABORATORY SPECIALIST Gender Identity Not on file Sexual Orientation Not on file Last Filed Vital Signs Vital Sign Reading Time Taken Comments Blood Pressure 122/66 06/04/2020 5:01 PM PROCESS LABORATORY SPECIALIST Pulse 98 06/04/2020 5:01 PM PROCESS LABORATORY SPECIALIST Temperature 37.4 C (99.3 F) 06/04/2020 5:01 PM PROCESS LABORATORY SPECIALIST Respiratory Rate 16 03/28/2020 9:45 AM CDT Oxygen Saturation 99% 06/04/2020 5:01 PM PROCESS LABORATORY SPECIALIST Inhaled Oxygen Concentration - - Weight 80.9 kg (178 lb 6.4 oz) 03/28/2020 9:45 A M CDT Height 167.6 cm (5' 6) 03/28/2020 9:45 AM CDT Body Mass Index 28.79 03/28/2020 9:45 AM CDT Plan of Treatment Health Maintenance Due Date Last Done Comments Hepatitis C Virus (HCV) Screening 1981 Varicella Immunization (1 of 2 - 13+ 2-dose series) 1994 Hepatitis B Immunization (1 of 3 - 19+ 3-dose series) 2000 Human Papillomavirus (HPV) Immunization (1 - 3-dose SCDM series) 2008 Influenza Immunization (#1) 03/20/202504/20, 06/01/2017 SARS-COV-2 Immunization (3 2024- season) 2025 11/09/2020, 10/19/2020 Respiratory Syncytial Virus [...] patient's age to complete this topic Insurance [facility] Care Teams Receptionist Nurse Relationship Specialty Start Date End Date Napoleon Shultz DO [address] [place] [address] PCP - General Family Medicine 01/10/20
--- OUTSIDE RECORDS SUMMARY | 2025-06-13 11:21 | XMS_ITS | Clinical Summary ---
Author Organization [facility] Address [facility] [place] [address] Care Team Providers Care Stitchdown Toe Former Name Role Phone Miguel Tellez MD Primary [...] Comments Blood Pressure 110/60 05/26/2016 11:01 AM HANDICAPPER HARNESS RACING Pulse 88 05/26/2016 11:01 AM HANDICAPPER HARNESS RACING Temperature - - Respiratory Rate - - Oxygen Saturation - - Inhaled Oxygen Concentration - - Weight 78.9 kg (174 lb) 05/26/2016 11:01 AM HANDICAPPER HARNESS RACING Height 167.6 cm (5' 6) 11/11/2013 9:28 [...] age to complete this topic Care Teams Stitchdown Toe Former Relationship Specialty Start Date End Date Miguel Tellez MD [address] [address] PCP - General 05/26/16
--- OUTSIDE RECORDS SUMMARY | 2025-06-13 11:22 | XMS_ITS | Encounter Summary ---
Author Organization [facility] Address [address] [place] [address] Care Team Providers Care Industrial Safety And Health Manager Name Role Phone Napoleon Shultz DO Primary Care Provider [phone] Reason for Referral * Diagnostic Imaging (Routine) - Pending Review Specialty Diagnoses / Procedures Referred By Contac t Referred To Contact Diagnoses Intervertebral disc disorder with radiculopathy of lumbar region Procedures XR Spine Lumbar Ap Lat Flex Ext min 4 Views Claudy Silverman PA [address] [place] [address] Phone: tel: fax: [facility] [address] [place] [address] Referral ID Status Reason Start Date Expiration Date V isits Requested Visits Authorized [id number] Pending Review 06/12/2025 07/12/2026 1 1 OW SYSTEMS ADMINISTRATOR Encounter Details Date Type Department Care Team (Late st Contact Info) Description 06/12/[address] [facility] with [facility] [address] [place] [address] Claudy Silverman PA [address] [place], [place] [id number] Intervertebral disc disorder with radiculopathy of lumbar region (Primary Dx) Social History Tobacco Use Types Packs/Day Years Used Date Smoking Tobacco: Never Smokeless Tobacco: Never Alcohol Use Standard Drinks/Week Comments Yes 3 (1 standard drink = 0.6 oz pur e alcohol) Comments No Sex and Gender Information Value Date Recorded Sex Assigned at Not on file Legal Sex Female 1:34 PM WINDOW SYSTEMS ADMINISTRATOR Gender Identity Female 08/27/2020 9:57 AM WINDOW SYSTEMS ADMINISTRATOR Sexual Orientation Choose not to disclose 2020 9:57 AM WINDOW SYSTEMS ADMINISTRATOR documented as of this encounter Plan of Treatment Scheduled Orders Name Type Priority Associated Diagnoses Orde r Schedule XR Spine Lumbar Ap Lat Flex Ext min 4 Views Imaging Schedule Routine, Read Routine (OP Routine) Intervertebral disc disorder with radiculopathy of lumbar region Expected: 06/12/2025, Expires: 06/12/2026 documented as of this encounter Visit Diagnoses Diagnosis Intervertebral disc disorder with radiculopathy of lumbar region- Primary documented in this encounter Care Teams Industrial Safety And Health Manager Relationship Specialty Start Date End Date Napoleon Shultz DO PCP - General Family Medicine 06/20/20 documented as of this encounter
--- OUTSIDE RECORDS SUMMARY | 2025-06-13 11:22 | XMS_ITS | Clinical Summary ---
Author Organization [facility] [facility] Address [address] [place] [address] Care Team Providers Care Supervisor Plastering Name Role Phone Napoleon Shultz DO Primary [...] 2021 INFLUENZA VACCINE (#1) 2025 Care Teams Supervisor Plastering Relationship Specialty Start Date End Date Napoleon Shultz DO NO ADDRESS ON FILE PCP - General Family Practice 01/12/20
--- OUTSIDE RECORDS SUMMARY | 2025-06-13 11:22 | XMS_ITS | Encounter Summary ---
Author Organization [facility] Address [address] [place] [address] Phone Care Team Providers Care Ocean Export Coordinator Name Role Phone Napoleon Shultz DO Primary Care Provider [phone] Encounter Details Date Type Department Care Team (Late st Contact Info) Description 03/24/2025 Telephone [facility] Medicine Scheduling [facility] [place] [address] Odette Radford Social History Tobacco Use Types Packs/Day Years Used Date Smoking Tobacco: Never Smokeless Tobacco: Never Alcohol Use Standard Drinks/Week Comments Yes 3 (1 standard drink = 0.6 oz pur e alcohol) Comments No Sex and Gender Information Value Date Recorded Sex Assigned at Not on file Legal Sex Female 1:34 PM CRAB FISHERMAN Gender Identity Female 08/27/2020 9:57 AM CRAB FISHERMAN Sexual Orientation Choose not to disclose 2020 9:57 AM CRAB FISHERMAN documented as of this encounter Miscellaneous Notes * Telephone Encounter - Haydee Guillen MA - 06/13/2025 10:05 AM CRAB FISHERMAN Imaging received and nominated. FISHERMAN * Telephone Encounter - Jo-Ann Stevens - 06/12/2025 10:39 AM CST Adult Scheduling Pool Called pt for scheduling, she opted for [facility]. Gave address & tel no, advised pt to be there early for xray. FISHERMAN * Telephone Encounter - TyMarshalledithkaren - 06/09/2025 11:[address] lumbar spine report scanned into chart FISHERMAN * Telephone Encounter - Shanna Mariscal CMA - 06/02/2025 10:01 AM CST [facility] called stating pt is scheduled for CT 06/08, auth updated. FISHERMAN * Telephone Encounter - Dion Gill - 03/28/2025 8:32 AM CDT Called pt to r/s. Reason for visit: Return Pt Date: 03/30 Time: 3:30pm Location: [place] [address]) [address] Lit coates Routed: BRIAN Murrieta and Directly to DISABILITY PROGRAM NAVIGATOR Send Letter to PCP for Insurance Auth: Yes * Telephone Encounter - Aiyana Garza - 03/28/2025 4:15 AM CDT Radiology report scanned into chart * Telephone Encounter - Dion Gill - 03/24/2025 12:40 PM CDT Called pt to schedule. pt still experiencing pain, numbness, cramping since surgery. Imaging Done within Last Year: Yes List ALL MRI Imaging Location: [facility] FAX Records Requested: Yes Reason for visit: Return Pt Date: 04/05 Time: 8.30am Location: [place] [address]) [address] Murrieta Routed: BRIAN Murrieta Send Letter to PCP for Insurance Auth: Yes * Telephone Encounter - Aiyana Garza - 03/24/2025 7:33 AM CDT Referral to neurosurgery scanned into chart Dx: lumbar radicular pain referral for - return pt. documented in this encounter Plan of Treatment Not on file documented as of this encounter Visit Diagnoses Not on filedocumented in this encounter Care Teams Ocean Export Coordinator Relationship Specialty Start Date End Date Napoleon Shultz DO PCP - General Family Medicine 06/20/20 documented as of this encounter
--- OUTSIDE RECORDS SUMMARY | 2025-06-13 11:22 | XMS_ITS | Clinical Summary ---
Author Organization [facility] Address [address] [place] [address] Care Team Providers Care Home Health Aide Caregiver Name Role Phone Napoleon Shultz DO Primary Care Provider [phone] Allergies Active Allergy Reactions Criticality Noted Date [...] total) by mouth daily 30 tablet 11 03/30/20 26 Active Active Problems Problem Noted Date Diagnosed Date Intervertebral disc disorder with radiculopathy of lumbar region 07/02/2020 Overview (07/02/2020): Added automatically from request for surgery [id number] Encounters Date Type Department Care Team Description 06/13/2025 9:12 AM CONCRETE BUCKET LOADER Hospital Encounter [facility] [address] [place] [address] Arrived 06/12/2025 Orders Only [facility] [address] [place] [address] Claudy Silverman PA Intervertebral disc disorder with radiculopathy of lumbar region (Primary Dx) 03/30/2025 4:39 PM CDT - 03/30/2025 11:59 PM CDT Hospital Encounter [facility] [address] [place] [address] Discharge Disposition: Discharge to home or self care 03/30/2025 3:30 PM CDT Office Visit [facility] Building [address] [place] [address] Claudy Silverman PA Intervertebral disc disorder with radiculopathy of lumbar region (Primary Dx) 03/24/2025 Telephone [facility] Scheduling [address] [place] [address] Odette Radford from Last 3 Months Immunizations [...] on file Legal Sex Female 1:34 PM CONCRETE BUCKET LOADER Gender Identity Female 08/27/2020 9:57 AM CONCRETE BUCKET LOADER Sexual Orientation Choose not to disclose 2020 9:57 AM CONCRETE BUCKET LOADER Last Filed Vital Signs Vital Sign Reading Time Taken Comments Blood Pressure 124/80 07/16/2024 3:51 PM CONCRETE BUCKET LOADER Pulse 117 07/16/2024 3:51 PM CONCRETE BUCKET LOADER Temperature 37.2 C (98.9 F) 07/16/2024 3:51 PM CONCRETE BUCKET LOADER Respiratory Rate 18 07/16/2024 3:51 PM CONCRETE BUCKET LOADER Oxygen Saturation 98% 07/16/2024 3:51 PM CONCRETE BUCKET LOADER Inhaled Oxygen Concentration - - Weight 68.5 [...] CT OUTSIDE REFERENCE Routine 06/13/2025 9:12 AM CONCRETE BUCKET LOADER NEURO MR OUTSIDE REFERENCE Routine 03/30/2025 4:39 PM CDT from Last 3 Months Results * Neuro CT Outside Reference (06/13/2025 9:12 AM CONCRETE BUCKET LOADER) Impressions [facility] - 06/13/2025 9:12 AM CONCRETE BUCKET LOADER These images are for Reference purposes only and have not been reviewed by [facility]. There will be no report generated by a [facility] Radiologist. Narrative RAD_PACS[facility] - 06/13/2025 9:12 AM CONCRETE BUCKET LOADER EXAMINATION: Images For Reference Purposes Only Claudy ABAD IMG CT PROCEDURES Fin al Result Performing Organization Address [facility] Co de Phone Number [email or web address] * Neuro MR Outside Reference (03/30/2025 4:39 PM CDT) Impressions [facility] - 03/30/2025 4:39 PM CDT These images are for Reference purposes only and have not been reviewed by [facility]. There will be no report generated by a [facility] Radiologist. Narrative RAD_P[facility] - 03/30/2025 4:39 PM CDT EXAMINATION: Images For Reference Purposes Only Claudy ABAD IMG MRI PROCEDURES Fi nal Result Performing Organization Address [facility] Co de Phone Number [facility] from Last 3 Months Insurance BLUE ACCESS OOS Ed[employer] ACCESS OOS Edicy ACCESS OOS Advance Directives For more information, please contact: [phone] Documents on File Type Date Recorded Patient Angle Shearer Expl anation ADVANCE DIRECTIVE 06/20/2020 Care Teams Home Health Aide Caregiver Relationship Specialty Start Date End Date Napoleon Shultz DO PCP - General Family Medicine 06/20/20
[2025-06-13 19:49] LABS: Add Urine Microscopic? NO; Alanine Aminotransferase 20 U/L (6-35); Albumin Level 4.2 g/dL (3.5-5.1); Alkaline Phosphatase 95 U/L (38-126); Anion Gap 9 mmol/L (4-12); Appearance Urine Clear (Clear); Aspartate Amino Transferase 90 U/L (14-36); Bilirubin,Total 0.3 mg/dL (0.2-1.3); Blood Urea Nitrogen 9 mg/dL (7-17); Calcium 9.3 mg/dL (8.4-10.2); Carbon Dioxide 29 mmol/L (22-30); Chloride 101 mmol/L (98-107); Estimated Glomerular Filt Rate > 60; Glucose 67 mg/dL (65-110); Glucose Urine UA Negative (Negative); Leukocyte Esterase Ur Negative LEU/UL (Negative); Nitrate Urine Negative (Negative); Potassium 3.8 mmol/L (3.4-5.0); Sodium 139 mmol/L (137-145); Specific Grav Ur 1.017 (1.001-1.035); Total Protein 8.1 g/dL (6.3-8.2)
[2025-06-13 20:06] LABS: Free T4 Free Thyroxine 1.06 ng/dL (0.78-2.19)
[2025-06-13 20:25] LABS: Thyroid Stimulating Hormone 0.855 uIU/mL (0.465-4.680)
[2025-06-13 20:52] LABS: Hematocrit 37.8 % (37.0-47.0); Hemoglobin 11.9 g/dL (12.0-15.0); Mean Corpuscular HGB Conc 31.5 g/dl (32-36); Mean Corpuscular Hemoglobin 30.8 pg (26-34); Mean Corpuscular Volume 97.9 fl (80-100); Platelet Count Result 280 k/mm3 (150-375); Red Blood Count 3.86 M/mm3 (4.2-5.4); White Blood Count 6.4 K/mm3 (4.5-10.0)
== END 2025-06-13 10:13 | disposition home or self-care (01) ==
LOC: ANHBWCLAB 10:13
PROVIDERS: PCP Nurse Practitioner Adult Health; Visit Provider Nurse Practitioner Adult Health
DX: E04.1 Nontoxic single thyroid nodule (principal); R42 Dizziness and giddiness; R39.9 Unspecified symptoms and signs involving the genitourinary system
CPT/HCPCS: 36415; 80053; 81003; 84439; 84443; 85027; 87086